=== PATIENT | male | born 1950 | race Caucasian/White ===

== ENCOUNTER 2020-11-15 13:48 | Inpatient (IN) | payer OTHER, MEDICARE, BC ==
--- NOTE | 2020-11-15 14:00 | EDM.PDOC ---
ED HPI GENERAL MEDICAL PROBLEM - General Chief Complaint: Cardiovascular Problem Stated Complaint: shortness of breathe Time Seen by Provider: 11/15/20 13:51 Chest Pain Score (Numeric/FACES): 2 - Related Data Allergies Allergy/AdvReac Type Severity Reaction Status Date / Time No Known Allergies Allergy Verified 11/15/20 13:59 Course - Vital Signs Last Recorded V/S: Last Vital Signs Temp 35.7 C L 11/15/20 13:57 Pulse 91 11/15/20 13:57 Resp 18 11/15/20 13:57 BP 116/73 11/15/20 13:57 Pulse Ox 97 11/15/20 13:57 Departure - Departure Sepsis Event Note (ED) - Evaluation Sepsis Screening Result: No Definite Risk - Focused Exam Vital Signs: Vital Signs Temp Pulse Resp BP Pulse Ox 11/15/20 13:57 35.7 C L 91 18 116/73 97
--- NOTE | 2020-11-15 14:01 | PCM.SN.2 ---
- Free Text/Narrative Note: EKG done at 1349. Sinus rhythm heart rate 86. [place] 152. QT 431. [place] -13. QRS ST and T are unremarkable. Compared to 06/23/2018 no change. Impression no acute injury
[2020-11-15] MEDS ORDERED: Sodium Chloride 0.9% 10 ML Syringe FLUSH PRN (14:03)
[2020-11-15] MEDS ORDERED: Sodium Chloride 0.9% 2.5 ML Syringe FLUSH PRN (14:03)
[2020-11-15] MEDS ORDERED: Aspirin 81 MG Tab.Chew PO ONE (14:06)
--- NOTE | 2020-11-15 14:16 | EDM.PDOC ---
ED HPI GENERAL MEDICAL PROBLEM - General Chief Complaint: Cardiovascular Problem Stated Complaint: shortness of breathe Time Seen by Provider: 11/15/20 13:51 Source of Information: Reports: Patient History Limitations: Reports: No Limitations - History of Present Illness INITIAL COMMENTS - FREE TEXT/NARRATIVE: HISTORY AND PHYSICAL: History of present illness: This is a 70-year-old male who presents with chest pain and shortness of breath with exertion over the past 3 to 4 days. He was referred by the [facility] due to recent hospitalization of renal insufficiency [place] [facility]. He is currently on an antibiotic for a UTI. Patient states he continues to have some right lower back pain, this is unchanged since his previous hospital admission. The shortness of breath is worse with physical activity, better at rest. Chest pain is nonreproducible. He describes it as a pressure to his mid sternum. He otherwise says he has no history of cardiac disease. Does have a history of COPD and hypertension. Patient denies any fever, chills, headache, change in vision, syncope or near syncope. Denies any back pain, or cough. Denies any abdominal pain, nausea, vomiting, diarrhea, constipation or dysuria. Has not noted any blood in urine or stool. Patient has been eating and drinking appropriately. Review of systems: As per history of present illness and below otherwise all systems reviewed and negative. Past medical history: As per history of present illness and as reviewed below otherwise noncontributory. Surgical history: As per history of present illness and as reviewed below otherwise noncontributory. Social history: See social history for further information Family history: As per history of present illness and as reviewed below otherwise noncontribut ory. Physical exam: General: Well developed and well nourished 70 year male. Alert and orientated x 3. Nontoxic in appearance and in no acute distress. Vital signs are stable and have been reviewed by me. Nursing notes were reviewed. HEENT: Atraumatic, normocephalic, pupils equal and reactive bilaterally, negative for conjunctival pallor or scleral icterus, mucous membranes moist, neck supple, nontender, trachea midline. No drooling or trismus noted. No meningeal signs. No hot potato voice noted. Lungs: Slightly diminished to auscultation bilaterally. No wheezes, rales, or rhonchi. Chest nontender. Normal work of breathing, no accessory muscles used. Heart: S1S2, regular rate and rhythm without overt murmur, gallops, or rubs. No JVD. No peripheral edema Abdomen: Soft, nondistended, nontender. Normoactive bowel sounds. Negative for masses or costovertebral tenderness. Skin: Intact, warm, dry. No lesions or rashes noted. Hematologic: No petechiae or purpra. Mucosa appropriate color and normal nail bed color and refill. Extremities: Atraumatic, moves all extremities per self without difficulty or deficits, negative for cords or calf pain. Neurovascular unremarkable. Neuro: Awake, alert, oriented. Cranial nerves II through XII unremarkable. Cerebellum unremarkable. Motor and sensory unremarkable throughout. Exam nonfocal. Psychiatric: Mood and affect are appropriate. Normal thought process. Answering questions appropriately. Notes: *This patient was seen and evaluated during the 2019 SARS-CoV-2 novel coronavirus pandemic period. Community viral transmission is ongoing at time of this encounter and the emergency department is operating under pandemic response procedures. The patient presents today with shortness of breath and chest pain. His exam is essentially normal. He has had a recent history of renal insufficiency. He is agreeable to lab work. EKG shows sinus rhythm with a rate of 86 which is unchanged from 06/23/2018. Patient does have a leukocytosis. BUN and creatinine is 68, 4.4. No previous renal labs for comparison. Patient states he recently was admitted in [place] and received IV fluids and states that his BUN and creatinine had improved well enough for him to be discharged home. He does have a urinary tract infection in which he has been on Cipro over the past 7 days. I feel the patient needs to be admitted for further care and management. Dr Donnelly was consulted about this patient. He requested CT abd/pelvis. Resident will come and evaluate patient. CT shows mild bladder wall thickening, raising question of cystitis. Colonic diverticulosis but no evidence of diverticulitis. Post inguinal hernia repair bilaterally. No evidence of stone or obstruction. Patient will be admitted for observation with telemetry. Diagnostics: CBC, CMP, Troponin, CXR, EKG, COVID Therapeutics: ASA 324 mg PO Impression: Acute kidney injury UTI Chest pain, r/o [place] Plan: Admitted to Med/Surg Definitive disposition and diagnosis as appropriate pending reevaluation and review of above. Chest Pain Score (Numeric/FACES): 2 - Related Data Allergies Allergy/AdvReac Type Severity Reaction Status Date / Time No Known Allergies Allergy Verified 11/15/20 13:59 Home Meds: Home Meds Ciprofloxacin [Ciprofloxacin HCl] 11/15/20 [History] Past Medical History Cardiovascular History: Reports: High Cholesterol, Hypertension Genitourinary History: Reports: BPH - Infectious Disease History Infectious Disease History: Reports: Chicken Pox Social & Family History - Family History Family Medical History: No Pertinent Family History - Tobacco Use Tobacco Use Status *Q: Never Tobacco User - Recreational Drug Use Recreational Drug Use: No ED ROS GENERAL - Review of Systems Review Of Systems: Comprehensive ROS is negative, except as noted in HPI. ED EXAM, GENERAL - Physical Exam Exam: See Below (See dictation) Course - Vital Signs Last Recorded V/S: Last Vital Signs Temp 96.3 F L 11/15/20 13:57 Pulse 73 11/15/20 16:31 Resp 18 11/15/20 13:57 BP 120/65 11/15/20 16:31 Pulse Ox 97 11/15/20 16:31 - Orders/Labs/Meds Orders: Active Orders 24 hr Category Date Time Status Admission Status [Patient Status] [ADT] Stat ADT 11/15/20 16:37 Ordered Cardiac Monitoring [RC] . DIRECTED Care 11/15/20 14:03 Active EKG Documentation Completion [RC] STAT Care 11/15/20 14:03 Active Sodium Chloride 0.9% [Normal Saline] 1,000 ml Med 11/15/20 14:48 Active IV STAT Sodium Chloride 0.9% [Saline Flush] Med 11/15/20 14:03 Active 10 ml FLUSH ASDIRECTED PRN Sodium Chloride 0.9% [Saline Flush] Med 11/15/20 14:03 Active 2.5 ml FLUSH ASDIRECTED PRN Saline Lock Insert [OM.PC] Stat Oth 11/15/20 14:03 Ordered Labs: Laboratory Tests 11/15/20 11/15/20 11/15/20 Range/Units 14:05 14:05 14:20 WBC 14.25 H (4.0-11.0) K/uL RBC 4.31 L (4.50-5.90) M/uL Hgb 12.2 L (13.0-17.0) g/dL Hct 35.6 L (38.0-50.0) % MCV 82.6 (80.0-98.0) fL MCH 28.3 (27.0-32.0) pg MCHC 34.3 (31.0-37.0) g/dL RDW Std Deviation 38.2 (28.0-62.0) fl RDW Coeff of Mumtaz 13 (11.0-15.0) % Plt Count 332 (150-400) K/uL MPV 9.20 (7.40-12.00) fL Neut % (Auto) 73.6 (48.0-80.0) % Lymph % (Auto) 15.9 L (16.0-40.0) % [place] % (Auto) 8.0 (0.0-15.0) % Eos % (Auto) 2.3 (0.0-7.0) % Baso % (Auto) 0.2 (0.0-1.5) % Neut # (Auto) 10.5 H (1.4-5.7) K/uL Lymph # (Auto) 2.3 (0.6-2.4) K/uL [place] # (Auto) 1.1 H (0.0-0.8) K/uL Eos # (Auto) 0.3 (0.0-0.7) K/uL Baso # (Auto) 0.0 (0.0-0.1) K/uL Nucleated RBC % 0.0 /100WBC Nucleated RBCs # 0 K/uL Lactate (0.20-2.00) mmol/L Sodium 133 L (136-148) mmol/L Potassium 4.0 (3.5-5.1) mmol/L Chloride 100 (98-107) mmol/L Carbon Dioxide 17.4 L (21.0-32.0) mmol/L BUN 68 H (7.0-18.0) mg/dL Creatinine 4.4 H (0.8-1.3) mg/dL Est Cr Clr Drug Dosing 16.66 mL/min Estimated GFR (MDRD) 13.3 ml/min Glucose 104 (74-106) mg/dL Calcium 9.4 (8.5-10.1) mg/dL Total Bilirubin 0.7 (0.2-1.0) mg/dL AST 28 (15-37) IU/L ALT 65 H (14-63) IU/L Alkaline Phosphatase 158 H (46-116) U/L Troponin I < 0.050 (0.000-0.056) ng/mL Total Protein 8.7 H (6.4-8.2) g/dL Albumin 3.3 L (3.4-5.0) g/dL Globulin 5.4 H (2.6-4.0) g/dL Albumin/Globulin Ratio 0.6 L (0.9-1.6) Urine Color YELLOW Urine Appearance CLOUDY Urine pH 6.0 (5.0-8.0) Ur Specific [place] 1.010 (1.001-1.035) Urine Protein TRACE H (NEGATIVE) mg/dL Urine Glucose (UA) NEGATIVE (NEGATIVE) mg/dL Urine Ketones NEGATIVE (NEGATIVE) mg/dL Urine Occult Blood SMALL H (NEGATIVE) Urine Nitrite NEGATIVE (NEGATIVE) Urine Bilirubin NEGATIVE (NEGATIVE) Urine Urobilinogen 0.2 (<2.0) EU/dL Ur Leukocyte Esterase LARGE H (NEGATIVE) Urine RBC 1-3 (0-2/HPF) Urine WBC TO NUMEROUS TO COUNT H (0-5/HPF) Ur Epithelial Cells FEW (NONE-FEW) Urine Bacteria FEW (NEGATIVE) SARS-CoV-2 RNA (MIKO) (NEGATIVE) 11/15/20 11/15/20 Range/Units 14:45 15:03 WBC (4.0-11.0) K/uL RBC (4.50-5.90) M/uL Hgb (13.0-17.0) g/dL Hct (38.0-50.0) % MCV (80.0-98.0) fL MCH (27.0-32.0) pg MCHC (31.0-37.0) g/dL RDW Std Deviation (28.0-62.0) fl RDW Coeff of Mumtaz (11.0-15.0) % Plt Count (150-400) K/uL MPV (7.40-12.00) fL Neut % (Auto) (48.0-80.0) % Lymph % (Auto) (16.0-40.0) % [place] % (Auto) (0.0-15.0) % Eos % (Auto) (0.0-7.0) % Baso % (Auto) (0.0-1.5) % Neut # (Auto) (1.4-5.7) K/uL Lymph # (Auto) (0.6-2.4) K/uL [place] # (Auto) (0.0-0.8) K/uL Eos # (Auto) (0.0-0.7) K/uL Baso # (Auto) (0.0-0.1) K/uL Nucleated RBC % /100WBC Nucleated RBCs # K/uL Lactate 0.6 (0.20-2.00) mmol/L Sodium (136-148) mmol/L Potassium (3.5-5.1) mmol/L Chloride (98-107) mmol/L Carbon Dioxide (21.0-32.0) mmol/L BUN (7.0-18.0) mg/dL Creatinine (0.8-1.3) mg/dL Est Cr Clr Drug Dosing mL/min Estimated GFR (MDRD) ml/min Glucose (74-106) mg/dL Calcium (8.5-10.1) mg/dL Total Bilirubin (0.2-1.0) mg/dL AST (15-37) IU/L ALT (14-63) IU/L Alkaline Phosphatase (46-116) U/L Troponin I (0.000-0.056) ng/mL Total Protein (6.4-8.2) g/dL Albumin (3.4-5.0) g/dL Globulin (2.6-4.0) g/dL Albumin/Globulin Ratio (0.9-1.6) Urine Color Urine Appearance Urine pH (5.0-8.0) Ur Specific [place] (1.001-1.035) Urine Protein (NEGATIVE) mg/dL Urine Glucose (UA) (NEGATIVE) mg/dL Urine Ketones (NEGATIVE) mg/dL Urine Occult Blood (NEGATIVE) Urine Nitrite (NEGATIVE) Urine Bilirubin (NEGATIVE) Urine Urobilinogen (<2.0) EU/dL Ur Leukocyte Esterase (NEGATIVE) Urine RBC (0-2/HPF) Urine WBC (0-5/HPF) Ur Epithelial Cells (NONE-FEW) Urine Bacteria (NEGATIVE) SARS-CoV-2 RNA (MIKO) NEGATIVE (NEGATIVE) Departure - Departure Time of Disposition: 16:39 Disposition: Refer to Observation Clinical Impression: Chest pain, rule out acute myocardial infarction, Acute kidney injury, Urinary tract infection Referrals: Alonso Aiken, [employer] [Primary Care Provider] - Forms: ED Department Discharge Sepsis Event Note (ED) - Evaluation Sepsis Screening Result: No Definite Risk - Focused Exam Vital Signs: Vital Signs Temp Pulse Resp BP Pulse Ox 11/15/20 16:31 73 120/65 97 11/15/20 13:57 96.3 F L 91 18 116/73 97 - My Orders Last 24 Hours: My Active Orders 11/15/20 14:03 Cardiac Monitoring [RC] . DIRECTED EKG Documentation Completion [RC] STAT Sodium Chloride 0.9% [Saline Flush] 10 ml FLUSH ASDIRECTED PRN Sodium Chloride 0.9% [Saline Flush] 2.5 ml FLUSH ASDIRECTED PRN Saline Lock Insert [OM.PC] Stat 11/15/20 14:48 Sodium Chloride 0.9% [Normal Saline] 1,000 ml IV STAT 11/15/20 16:37 Admission Status [Patient Status] [ADT] Stat - Assessment/Plan Last 24 Hours: My Active Orders 11/15/20 14:03 Cardiac Monitoring [RC] . DIRECTED EKG Documentation Completion [RC] STAT Sodium Chloride 0.9% [Saline Flush] 10 ml FLUSH ASDIRECTED PRN Sodium Chloride 0.9% [Saline Flush] 2.5 ml FLUSH ASDIRECTED PRN Saline Lock Insert [OM.PC] Stat 11/15/20 14:48 Sodium Chloride 0.9% [Normal Saline] 1,000 ml IV STAT 11/15/20 16:37 Admission Status [Patient Status] [ADT] Stat
[2020-11-15] MEDS ORDERED: Sodium Chloride 0.9% 1,000 ML IV ONE (14:48)
[2020-11-15] MEDS ORDERED: cefTRIAXone 1 GM in Premix Bag 1 BAG IV ONE (14:48)
[2020-11-15 14:49] LABS: BLOOD UREA NITROGEN,BUN 68 mg/dL (7.0-18.0); CARBON DIOXIDE,CO2 17.4 mmol/L (21.0-32.0); CHLORIDE,CL 100 mmol/L (98-107); GLUCOSE RANDOM 104 mg/dL (74-106); SODIUM,NA 133 mmol/L (136-148)
--- NOTE | 2020-11-15 15:02 | CR ---
INDICATION: Chest pain and shortness of breath TECHNIQUE: Chest 1 view COMPARISON: None FINDINGS: Cardiovascular and mediastinum: Heart size and vasculature are normal in caliber and appearance. Lungs and pleural spaces: Lungs are clear. No sign of infiltrate or mass. No sign of pleural effusion. No pneumothorax. Bones and soft tissues: No significant findings. IMPRESSION: Negative chest. Dictated by Fernando Gilmore MD @ Nov 15 2020 3:00PM Signed by Dr. Fernando Gilmore @ Nov 15 2020 3:01PM
--- NOTE | 2020-11-15 16:17 | CT ---
INDICATION: Abdominal pain. TECHNIQUE: Volumetric helical scanning of the abdomen and pelvis was performed without contrast material. Coronal and sagittal reconstructions were obtained. COMPARISON: None FINDINGS: Colonic diverticulosis is demonstrated. There is no evidence of diverticulitis. The bowel is otherwise unremarkable. No free fluid is demonstrated. The bladder wall is mildly thickened. The kidneys are normal in size, shape and attenuation. No ureteral stone or obstruction is evident. The prostate is unremarkable. The liver, spleen, adrenal glands and pancreas are within normal limits. No lymphadenopathy is evident. Postop changes of bilateral inguinal hernia repair is noted. The lung bases are essentially clear. The heart size is normal. Calcified coronary arterial plaque is demonstrated. IMPRESSION: 1. Mild bladder wall thickening, raising question of cystitis. 2. Colonic diverticulosis but no evidence of diverticulitis. 3. Post inguinal hernia repair bilaterally. Please note that all CT scans at this facility use dose modulation, iterative reconstruction, and/or weight-based dosing when appropriate to reduce radiation dose to as low as reasonably achievable. Dictated by Edmund Wasserman MD @ Nov 15 2020 4:07PM Signed by Dr. Edmund Wasserman @ Nov 15 2020 4:16PM
--- NOTE | 2020-11-15 17:17 | PCM.HP.2 ---
H&P History of Present Illness - General Date of Service: 11/15/20 Admit Problem/Dx: Admission Diagnosis/Problem Admission Diagnosis/Problem Acute kidney injury - History of Present Illness Initial Comments - Free Text/Narative: 70-year-old male admitted for cystitis, STEVE, ACS rule out. Patient presented to the emergency department [facility] due to abdominal discomfort, back pain , chest pain, unresolved UTI. Patient states he was previously seen in [facility] this past for similar symptoms, was diagnosed with a urinary tract infection and acute kidney injury, states he was treated with antibiotics and IV fluids, discharged home on ciprofloxacin. Patient states at discharge from [place] all of his lab work including kidney functions were normal (will request patient's previous records to confirm). Patient also believes that his poor kidney function could be related to his previous hypertension medication, losartan, which was discontinued prior to admission. Patient states since discharge symptoms have not improved. On admission patient states right lower back pain with right flank pain. Denies shortness of breath or chest pain. Denies headache, dizziness, nausea, vomiting, constipation, dysuria, hematuria. Patient states past medical history of hypertension, with no other cardiac disease. Patient also states history of COPD, hypertension, GERD, indigestion. Patient is not currently a smoker. Patient denies history of diabetes. Laboratory work includes first troponin negative will repeat second troponin, EKG-normal sinus rhythm with regular rate 86, white blood cell count of 14.2, sodium 133, potassium 4.0, BUN 68, creatinine 4.4, UA positive for white blood cell and positive leukocyte esterase, negative nitrite. Negative chest x-ray, CT abdomen pelvis impression of bladder wall thickening possible cystitis and signs of diverticulosis without diverticulitis. Patient will be started on Rocephin 1 g daily and IV fluids. Chest Pain Score (Numeric/FACES): 2 - Related Data Allergies/Adverse Reactions: Allergies Allergy/AdvReac Type Severity Reaction Status Date / Time No Known Allergies Allergy Verified 11/15/20 17:54 Home Medications: Home Meds Allopurinol [Zyloprim] 300 mg PO DAILY 11/15/20 [History] Ciprofloxacin [Ciprofloxacin HCl] 11/15/20 [History] Diclofenac Sodium [Voltaren 1% Gel] 1 applic TOP QID PRN 11/15/20 [History] Metoprolol Tartrate 25 mg PO DAILY 11/15/20 [History] Mometasone Furoate 200mcg [Asmanex HFA 200mcg] 2 puff INH DAILY 11/15/20 [History] Tamsulosin HCl [Flomax] 1 cap PO BEDTIME 11/15/20 [History] Tiotropium [Spiriva HandiHaler] 2 puff INH DAILY 11/15/20 [History] atorvaSTATin Calcium [Atorvastatin Calcium] 20 mg PO BEDTIME 11/15/20 [History] Past Medical History Cardiovascular History: Reports: High Cholesterol, Hypertension Genitourinary History: Reports: BPH - Infectious Disease History Infectious Disease History: Reports: Chicken Pox Social & Family History - Family History Family Medical History: No Pertinent Family History - Tobacco Use Tobacco Use Status *Q: Never Tobacco User - Recreational Drug Use Recreational Drug Use: No H&P Review of Systems - Review of Systems: Review Of Systems: See Below General: Denies: Fever, Chills Pulmonary: Denies: Shortness of Breath Cardiovascular: Denies: Chest Pain Gastrointestinal: Denies: Abdominal Pain, Nausea, Vomiting Genitourinary: Denies: Dysuria, Burning Psychiatric: Denies: Confusion Neurological: Denies: Confusion, Dizziness Exam - Exam Exam: See Below - Vital Signs Vital Signs: Last Vital Signs Temp 96.3 F L 11/15/20 13:57 Pulse 73 11/15/20 16:31 Resp 18 11/15/20 13:57 BP 120/65 11/15/20 16:31 Pulse Ox 97 11/15/20 16:31 Weight: 205 lb - Exam Quality Assessment: No: Supplemental Oxygen General: Alert, Oriented Lungs: Clear to Auscultation, Normal Respiratory Effort Cardiovascular: Regular Rate, Regular Rhythm GI/Abdominal Exam: Normal Bowel Sounds, Soft, Non-Tender Extremities: No Pedal Edema Neuro Extensive - Mental Status: Alert, Oriented x3 - Patient Data Lab Results Last 24 hrs: Laboratory Results - last 24 hr 11/15/20 11/15/20 11/15/20 Range/Units 14:05 14:05 14:20 WBC 14.25 H (4.0-11.0) K/uL RBC 4.31 L (4.50-5.90) M/uL Hgb 12.2 L (13.0-17.0) g/dL Hct 35.6 L (38.0-50.0) % MCV 82.6 (80.0-98.0) fL MCH 28.3 (27.0-32.0) pg MCHC 34.3 (31.0-37.0) g/dL RDW Std Deviation 38.2 (28.0-62.0) fl RDW Coeff of Mumtaz 13 (11.0-15.0) % Plt Count 332 (150-400) K/uL MPV 9.20 (7.40-12.00) fL Neut % (Auto) 73.6 (48.0-80.0) % Lymph % (Auto) 15.9 L (16.0-40.0) % Izard % (Auto) 8.0 (0.0-15.0) % Eos % (Auto) 2.3 (0.0-7.0) % Baso % (Auto) 0.2 (0.0-1.5) % Neut # (Auto) 10.5 H (1.4-5.7) K/uL Lymph # (Auto) 2.3 (0.6-2.4) K/uL Izard # (Auto) 1.1 H (0.0-0.8) K/uL Eos # (Auto) 0.3 (0.0-0.7) K/uL Baso # (Auto) 0.0 (0.0-0.1) K/uL Nucleated RBC % 0.0 /100WBC Nucleated RBCs # 0 K/uL Lactate (0.20-2.00) mmol/L Sodium 133 L (136-148) mmol/L Potassium 4.0 (3.5-5.1) mmol/L Chloride 100 (98-107) mmol/L Carbon Dioxide 17.4 L (21.0-32.0) mmol/L BUN 68 H (7.0-18.0) mg/dL Creatinine 4.4 H (0.8-1.3) mg/dL Est Cr Clr Drug Dosing 16.66 mL/min Estimated GFR (MDRD) 13.3 ml/min Glucose 104 (74-106) mg/dL Calcium 9.4 (8.5-10.1) mg/dL Total Bilirubin 0.7 (0.2-1.0) mg/dL AST 28 (15-37) IU/L ALT 65 H (14-63) IU/L Alkaline Phosphatase 158 H (46-116) U/L Troponin I < 0.050 (0.000-0.056) ng/mL Total Protein 8.7 H (6.4-8.2) g/dL Albumin 3.3 L (3.4-5.0) g/dL Globulin 5.4 H (2.6-4.0) g/dL Albumin/Globulin Ratio 0.6 L (0.9-1.6) Urine Color YELLOW Urine Appearance CLOUDY Urine pH 6.0 (5.0-8.0) Ur Specific Struthers 1.010 (1.001-1.035) Urine Protein TRACE H (NEGATIVE) mg/dL Urine Glucose (UA) NEGATIVE (NEGATIVE) mg/dL Urine Ketones NEGATIVE (NEGATIVE) mg/dL Urine Occult Blood SMALL H (NEGATIVE) Urine Nitrite NEGATIVE (NEGATIVE) Urine Bilirubin NEGATIVE (NEGATIVE) Urine Urobilinogen 0.2 (<2.0) EU/dL Ur Leukocyte Esterase LARGE H (NEGATIVE) Urine RBC 1-3 (0-2/HPF) Urine WBC TO NUMEROUS TO COUNT H (0-5/HPF) Ur Epithelial Cells FEW (NONE-FEW) Urine Bacteria FEW (NEGATIVE) SARS-CoV-2 RNA (MIKO) (NEGATIVE) 11/15/20 11/15/20 Range/Units 14:45 15:03 WBC (4.0-11.0) K/uL RBC (4.50-5.90) M/uL Hgb (13.0-17.0) g/dL Hct (38.0-50.0) % MCV (80.0-98.0) fL MCH (27.0-32.0) pg MCHC (31.0-37.0) g/dL RDW Std Deviation (28.0-62.0) fl RDW Coeff of Mumtaz (11.0-15.0) % Plt Count (150-400) K/uL MPV (7.40-12.00) fL Neut % (Auto) (48.0-80.0) % Lymph % (Auto) (16.0-40.0) % Izard % (Auto) (0.0-15.0) % Eos % (Auto) (0.0-7.0) % Baso % (Auto) (0.0-1.5) % Neut # (Auto) (1.4-5.7) K/uL Lymph # (Auto) (0.6-2.4) K/uL Izard # (Auto) (0.0-0.8) K/uL Eos # (Auto) (0.0-0.7) K/uL Baso # (Auto) (0.0-0.1) K/uL Nucleated RBC % /100WBC Nucleated RBCs # K/uL Lactate 0.6 (0.20-2.00) mmol/L Sodium (136-148) mmol/L Potassium (3.5-5.1) mmol/L Chloride (98-107) mmol/L Carbon Dioxide (21.0-32.0) mmol/L BUN (7.0-18.0) mg/dL Creatinine (0.8-1.3) mg/dL Est Cr Clr Drug Dosing mL/min Estimated GFR (MDRD) ml/min Glucose (74-106) mg/dL Calcium (8.5-10.1) mg/dL Total Bilirubin (0.2-1.0) mg/dL AST (15-37) IU/L ALT (14-63) IU/L Alkaline Phosphatase (46-116) U/L Troponin I (0.000-0.056) ng/mL Total Protein (6.4-8.2) g/dL Albumin (3.4-5.0) g/dL Globulin (2.6-4.0) g/dL Albumin/Globulin Ratio (0.9-1.6) Urine Color Urine Appearance Urine pH (5.0-8.0) Ur Specific Struthers (1.001-1.035) Urine Protein (NEGATIVE) mg/dL Urine Glucose (UA) (NEGATIVE) mg/dL Urine Ketones (NEGATIVE) mg/dL Urine Occult Blood (NEGATIVE) Urine Nitrite (NEGATIVE) Urine Bilirubin (NEGATIVE) Urine Urobilinogen (<2.0) EU/dL Ur Leukocyte Esterase (NEGATIVE) Urine RBC (0-2/HPF) Urine WBC (0-5/HPF) Ur Epithelial Cells (NONE-FEW) Urine Bacteria (NEGATIVE) SARS-CoV-2 RNA (MIKO) NEGATIVE (NEGATIVE) Result Diagrams: 11/15/20 14:05 11/15/20 14:05 Sepsis Event Note - Evaluation Sepsis Screening Result: No Definite Risk - Focused Exam Vital Signs: Vital Signs Temp Pulse Resp BP Pulse Ox 11/15/20 16:31 73 120/65 97 11/15/20 13:57 96.3 F L 91 18 116/73 97 - Problem List (1) Cystitis SNOMED Code(s): 33983821 ICD Code: N30.90 - CYSTITIS, UNSPECIFIED WITHOUT HEMATURIA Status: Acute Current Visit: Yes (2) Hypertension SNOMED Code(s): 79740166 ICD Code: I10 - ESSENTIAL (PRIMARY) HYPERTENSION Status: Acute Current Visit: Yes (3) COPD (chronic obstructive pulmonary disease) SNOMED Code(s): 29159495 ICD Code: J44.9 - CHRONIC OBSTRUCTIVE PULMONARY DISEASE, UNSPECIFIED Status: Acute Current Visit: No (4) Acute kidney injury SNOMED Code(s): 20680452, 56145716 ICD Code: N17.9 - ACUTE KIDNEY FAILURE, UNSPECIFIED Status: Acute Current Visit: Yes (5) Chest pain, rule out acute myocardial infarction SNOMED Code(s): 29426953 ICD Code: R07.9 - CHEST PAIN, UNSPECIFIED Status: Acute Current Visit: Yes Problem List Initiated/Reviewed/Updated: Yes Orders Last 24hrs: Active Orders 24 hr Category Date Time Status Admission Status [Patient Status] [ADT] Routine ADT 11/15/20 16:58 Active Cardiac Monitoring [RC] . DIRECTED Care 11/15/20 14:03 Active EKG Documentation Completion [RC] STAT Care 11/15/20 14:03 Active Brewer Catheter Insertion [Insert Urinary Catheter] [OM. Care 11/15/20 17:15 Ordered PC] Q24H Intake and Output Strict [RC] ASDIRECTED Care 11/15/20 17:07 Ordered Urinary Catheter Assessment [RC] ASDIRECTED Care 11/15/20 17:10 Ordered CREATININE,URINE RAND [URCHEM] Stat Lab 11/15/20 17:04 Ordered SODIUM,URINE RANDOM [URCHEM] Stat Lab 11/15/20 17:04 Ordered TROPONIN I [CHEM] Urgent Lab 11/15/20 17:30 Ordered Sodium Chloride 0.9% @ 150 MLS/HR (1,000ml) Med 11/15/20 17:15 Ordered Sodium Chloride 0.9% [Normal Saline] 1,000 ml IV ASDIRECTED Sodium Chloride 0.9% [Normal Saline] 1,000 ml Med 11/15/20 14:48 Active IV STAT Sodium Chloride 0.9% [Saline Flush] Med 11/15/20 14:03 Active 10 ml FLUSH ASDIRECTED PRN Sodium Chloride 0.9% [Saline Flush] Med 11/15/20 14:03 Active 2.5 ml FLUSH ASDIRECTED PRN cefTRIAXone [Rocephin] 1 gm Med 11/16/20 14:00 Ordered Sodium Chloride 0.9% [Normal Saline] 50 ml IV Q24H Saline Lock Insert [OM.PC] Stat Oth 11/15/20 14:03 Ordered Assessment/Plan Comment:: ACS rule outfirst troponin negative will trend with second troponin. EKGnormal sinus rhythm with regular rate 86 with no signs of acute injury. CystitisRocephin 1 g daily AKIcreatinine 4.4, patient already received 1L bolus of normal saline in the ED, will continue fluids at a rate of 150 mL/h normal saline. Urine sodium and urine creatinine ordered we will calculate patient's fractional excretion of sodium to determine renal failure pathology. Avoid all nephrotoxic agents, Strict I&O. Patient's urine sodium 40, urine creatinine 65 FeNA score of 2.0%, possible causative STEVE could be intrinsic renal pathology GERD-protonix 40mg PO daily Heart healthy diet, heparin 5000 units SC Q8H for DVT prophylaxis, monitoring manager, vitals Q4H.
[2020-11-15] MEDS ORDERED: Acetaminophen 325 MG Tab PO PRN (17:48)
[2020-11-15] MEDS: Heparin Sodium 5,000 Units/ML Vial SUBCUT SCH (18:11)
[2020-11-15] MEDS ORDERED: Tamsulosin 0.4 MG Cap.ER PO SCH (21:00)
[2020-11-15] MEDS ORDERED: Albuterol/Ipratropium 3.0-0.5 MG/3 ML Neb Soln NEB PRN (23:41)
[2020-11-15] MEDS: Tamsulosin 0.4 MG Cap.ER PO SCH (23:48)
[2020-11-16] MEDS: Sodium Chloride 0.9% 1,000 ML IV SCH ×4 (01:05→21:35)
[2020-11-16] MEDS: Heparin Sodium 5,000 Units/ML Vial SUBCUT SCH ×3 (01:25→17:57)
[2020-11-16 06:30] LABS: CARBON DIOXIDE,CO2 17.2 mmol/L (21.0-32.0); POTASSIUM,K 4.4 mmol/L (3.5-5.1)
[2020-11-16] MEDS: Pantoprazole 40 MG Tab.CR PO SCH (07:42)
[2020-11-16] MEDS: Metoprolol Tartrate 25 MG Tab PO SCH (09:04)
[2020-11-16] MEDS: Tiotropium Inhaler 18 MCG Inhalation Powder Cap Kit of 5 INH SCH (09:49)
[2020-11-16] MEDS: MOMETASONE FUROATE 200 MCG INH SCH (09:51)
--- NOTE | 2020-11-16 10:19 | PCM.PN ---
- General Info Date of Service: 11/16/20 Subjective Update: Patient did not have any concerns overnight. Patient denies chest pain, shortness of breath, fever, chills, nausea, vomiting, abdominal pain, back pain, flank pain. Patient denies dysuria or hematuria or urinary retention. - Review of Systems General: Denies: Fever, Chills Pulmonary: Denies: Shortness of Breath Cardiovascular: Denies: Chest Pain Gastrointestinal: Denies: Abdominal Pain, Nausea, Vomiting Genitourinary: Denies: Dysuria, Frequency, Burning, Pain, Flank Pain Neurological: Denies: Confusion Psychiatric: Denies: Confusion - Patient Data Vitals - Most Recent: Last Vital Signs Temp 97.5 F 11/16/20 09:55 Pulse 78 11/16/20 09:55 Resp 16 11/16/20 09:55 BP 112/78 11/16/20 09:55 Pulse Ox 95 11/16/20 09:55 Weight - Most Recent: 210 lb 1.6 oz I&O - Last 24 Hours: Intake & Output 11/15/20 11/16/20 11/16/20 22:59 06:59 14:59 Intake Total 3273 Output Total 3100 Balance 173 Lab Results Last 24 Hours: Laboratory Results - last 24 hr 11/15/20 11/15/20 11/15/20 Range/Units 14:05 14:05 14:20 WBC 14.25 H (4.0-11.0) K/uL RBC 4.31 L (4.50-5.90) M/uL Hgb 12.2 L (13.0-17.0) g/dL Hct 35.6 L (38.0-50.0) % MCV 82.6 (80.0-98.0) fL MCH 28.3 (27.0-32.0) pg MCHC 34.3 (31.0-37.0) g/dL RDW Std Deviation 38.2 (28.0-62.0) fl RDW Coeff of Mumtaz 13 (11.0-15.0) % Plt Count 332 (150-400) K/uL MPV 9.20 (7.40-12.00) fL Neut % (Auto) 73.6 (48.0-80.0) % Lymph % (Auto) 15.9 L (16.0-40.0) % Louisa % (Auto) 8.0 (0.0-15.0) % Eos % (Auto) 2.3 (0.0-7.0) % Baso % (Auto) 0.2 (0.0-1.5) % Neut # (Auto) 10.5 H (1.4-5.7) K/uL Lymph # (Auto) 2.3 (0.6-2.4) K/uL Louisa # (Auto) 1.1 H (0.0-0.8) K/uL Eos # (Auto) 0.3 (0.0-0.7) K/uL Baso # (Auto) 0.0 (0.0-0.1) K/uL Nucleated RBC % 0.0 /100WBC Nucleated RBCs # 0 K/uL Lactate (0.20-2.00) mmol/L Sodium 133 L (136-148) mmol/L Potassium 4.0 (3.5-5.1) mmol/L Chloride 100 (98-107) mmol/L Carbon Dioxide 17.4 L (21.0-32.0) mmol/L BUN 68 H (7.0-18.0) mg/dL Creatinine 4.4 H (0.8-1.3) mg/dL Est Cr Clr Drug Dosing 16.66 mL/min Estimated GFR (MDRD) 13.3 ml/min Glucose 104 (74-106) mg/dL Calcium 9.4 (8.5-10.1) mg/dL Magnesium (1.8-2.4) mg/dL Total Bilirubin 0.7 (0.2-1.0) mg/dL AST 28 (15-37) IU/L ALT 65 H (14-63) IU/L Alkaline Phosphatase 158 H (46-116) U/L Creatine Kinase (26-308) U/L Troponin I < 0.050 (0.000-0.056) ng/mL Total Protein 8.7 H (6.4-8.2) g/dL Albumin 3.3 L (3.4-5.0) g/dL Globulin 5.4 H (2.6-4.0) g/dL Albumin/Globulin Ratio 0.6 L (0.9-1.6) Urine Color YELLOW Urine Appearance CLOUDY Urine pH 6.0 (5.0-8.0) Ur Specific Rheems 1.010 (1.001-1.035) Urine Protein TRACE H (NEGATIVE) mg/dL Urine Glucose (UA) NEGATIVE (NEGATIVE) mg/dL Urine Ketones NEGATIVE (NEGATIVE) mg/dL Urine Occult Blood SMALL H (NEGATIVE) Urine Nitrite NEGATIVE (NEGATIVE) Urine Bilirubin NEGATIVE (NEGATIVE) Urine Urobilinogen 0.2 (<2.0) EU/dL Ur Leukocyte Esterase LARGE H (NEGATIVE) Urine RBC 1-3 (0-2/HPF) Urine WBC TO NUMEROUS TO COUNT H (0-5/HPF) Ur Epithelial Cells FEW (NONE-FEW) Urine Bacteria FEW (NEGATIVE) Ur Random Creatinine mg/dL Ur Random Sodium (40.0-220.0) mmol/L SARS-CoV-2 RNA (MIKO) (NEGATIVE) 11/15/20 11/15/20 11/15/20 Range/Units 14:20 14:45 15:03 WBC (4.0-11.0) K/uL RBC (4.50-5.90) M/uL Hgb (13.0-17.0) g/dL Hct (38.0-50.0) % MCV (80.0-98.0) fL MCH (27.0-32.0) pg MCHC (31.0-37.0) g/dL RDW Std Deviation (28.0-62.0) fl RDW Coeff of Mumtaz (11.0-15.0) % Plt Count (150-400) K/uL MPV (7.40-12.00) fL Neut % (Auto) (48.0-80.0) % Lymph % (Auto) (16.0-40.0) % Louisa % (Auto) (0.0-15.0) % Eos % (Auto) (0.0-7.0) % Baso % (Auto) (0.0-1.5) % Neut # (Auto) (1.4-5.7) K/uL Lymph # (Auto) (0.6-2.4) K/uL Louisa # (Auto) (0.0-0.8) K/uL Eos # (Auto) (0.0-0.7) K/uL Baso # (Auto) (0.0-0.1) K/uL Nucleated RBC % /100WBC Nucleated RBCs # K/uL Lactate 0.6 (0.20-2.00) mmol/L Sodium (136-148) mmol/L Potassium (3.5-5.1) mmol/L Chloride (98-107) mmol/L Carbon Dioxide (21.0-32.0) mmol/L BUN (7.0-18.0) mg/dL Creatinine (0.8-1.3) mg/dL Est Cr Clr Drug Dosing mL/min Estimated GFR (MDRD) ml/min Glucose (74-106) mg/dL Calcium (8.5-10.1) mg/dL Magnesium (1.8-2.4) mg/dL Total Bilirubin (0.2-1.0) mg/dL AST (15-37) IU/L ALT (14-63) IU/L Alkaline Phosphatase (46-116) U/L Creatine Kinase (26-308) U/L Troponin I (0.000-0.056) ng/mL Total Protein (6.4-8.2) g/dL Albumin (3.4-5.0) g/dL Globulin (2.6-4.0) g/dL Albumin/Globulin Ratio (0.9-1.6) Urine Color Urine Appearance Urine pH (5.0-8.0) Ur Specific Rheems (1.001-1.035) Urine Protein (NEGATIVE) mg/dL Urine Glucose (UA) (NEGATIVE) mg/dL Urine Ketones (NEGATIVE) mg/dL Urine Occult Blood (NEGATIVE) Urine Nitrite (NEGATIVE) Urine Bilirubin (NEGATIVE) Urine Urobilinogen (<2.0) EU/dL Ur Leukocyte Esterase (NEGATIVE) Urine RBC (0-2/HPF) Urine WBC (0-5/HPF) Ur Epithelial Cells (NONE-FEW) Urine Bacteria (NEGATIVE) Ur Random Creatinine 65.2 mg/dL Ur Random Sodium 40.0 (40.0-220.0) mmol/L SARS-CoV-2 RNA (MIKO) NEGATIVE (NEGATIVE) 11/15/20 11/15/20 11/16/20 Range/Units 17:30 23:43 05:28 WBC 9.73 (4.0-11.0) K/uL RBC 3.67 L (4.50-5.90) M/uL Hgb 10.3 L (13.0-17.0) g/dL Hct 30.7 L (38.0-50.0) % MCV 83.7 (80.0-98.0) fL MCH 28.1 (27.0-32.0) pg MCHC 33.6 (31.0-37.0) g/dL RDW Std Deviation 39.2 (28.0-62.0) fl RDW Coeff of Mumtaz 13 (11.0-15.0) % Plt Count 333 (150-400) K/uL MPV 9.30 (7.40-12.00) fL Neut % (Auto) 68.4 (48.0-80.0) % Lymph % (Auto) 19.8 (16.0-40.0) % Louisa % (Auto) 8.1 (0.0-15.0) % Eos % (Auto) 3.5 (0.0-7.0) % Baso % (Auto) 0.2 (0.0-1.5) % Neut # (Auto) 6.7 H (1.4-5.7) K/uL Lymph # (Auto) 1.9 (0.6-2.4) K/uL Louisa # (Auto) 0.8 (0.0-0.8) K/uL Eos # (Auto) 0.3 (0.0-0.7) K/uL Baso # (Auto) 0.0 (0.0-0.1) K/uL Nucleated RBC % 0.0 /100WBC Nucleated RBCs # 0 K/uL Lactate (0.20-2.00) mmol/L Sodium (136-148) mmol/L Potassium (3.5-5.1) mmol/L Chloride (98-107) mmol/L Carbon Dioxide (21.0-32.0) mmol/L BUN (7.0-18.0) mg/dL Creatinine (0.8-1.3) mg/dL Est Cr Clr Drug Dosing mL/min Estimated GFR (MDRD) ml/min Glucose (74-106) mg/dL Calcium (8.5-10.1) mg/dL Magnesium (1.8-2.4) mg/dL Total Bilirubin (0.2-1.0) mg/dL AST (15-37) IU/L ALT (14-63) IU/L Alkaline Phosphatase (46-116) U/L Creatine Kinase (26-308) U/L Troponin I < 0.050 < 0.050 (0.000-0.056) ng/mL Total Protein (6.4-8.2) g/dL Albumin (3.4-5.0) g/dL Globulin (2.6-4.0) g/dL Albumin/Globulin Ratio (0.9-1.6) Urine Color Urine Appearance Urine pH (5.0-8.0) Ur Specific Rheems (1.001-1.035) Urine Protein (NEGATIVE) mg/dL Urine Glucose (UA) (NEGATIVE) mg/dL Urine Ketones (NEGATIVE) mg/dL Urine Occult Blood (NEGATIVE) Urine Nitrite (NEGATIVE) Urine Bilirubin (NEGATIVE) Urine Urobilinogen (<2.0) EU/dL Ur Leukocyte Esterase (NEGATIVE) Urine RBC (0-2/HPF) Urine WBC (0-5/HPF) Ur Epithelial Cells (NONE-FEW) Urine Bacteria (NEGATIVE) Ur Random Creatinine mg/dL Ur Random Sodium (40.0-220.0) mmol/L SARS-CoV-2 RNA (MIKO) (NEGATIVE) 11/16/20 11/16/20 Range/Units 05:28 05:28 WBC (4.0-11.0) K/uL RBC (4.50-5.90) M/uL Hgb (13.0-17.0) g/dL Hct (38.0-50.0) % MCV (80.0-98.0) fL MCH (27.0-32.0) pg MCHC (31.0-37.0) g/dL RDW Std Deviation (28.0-62.0) fl RDW Coeff of Mumtaz (11.0-15.0) % Plt Count (150-400) K/uL MPV (7.40-12.00) fL Neut % (Auto) (48.0-80.0) % Lymph % (Auto) (16.0-40.0) % Louisa % (Auto) (0.0-15.0) % Eos % (Auto) (0.0-7.0) % Baso % (Auto) (0.0-1.5) % Neut # (Auto) (1.4-5.7) K/uL Lymph # (Auto) (0.6-2.4) K/uL Louisa # (Auto) (0.0-0.8) K/uL Eos # (Auto) (0.0-0.7) K/uL Baso # (Auto) (0.0-0.1) K/uL Nucleated RBC % /100WBC Nucleated RBCs # K/uL Lactate (0.20-2.00) mmol/L Sodium 136 (136-148) mmol/L Potassium 4.4 (3.5-5.1) mmol/L Chloride 105 (98-107) mmol/L Carbon Dioxide 17.2 L (21.0-32.0) mmol/L BUN 71 H (7.0-18.0) mg/dL Creatinine 4.4 H (0.8-1.3) mg/dL Est Cr Clr Drug Dosing 16.66 mL/min Estimated GFR (MDRD) 13.3 ml/min Glucose 101 (74-106) mg/dL Calcium 8.8 (8.5-10.1) mg/dL Magnesium 2.0 (1.8-2.4) mg/dL Total Bilirubin 0.3 (0.2-1.0) mg/dL AST 21 (15-37) IU/L ALT 49 (14-63) IU/L Alkaline Phosphatase 135 H (46-116) U/L Creatine Kinase 71 (26-308) U/L Troponin I (0.000-0.056) ng/mL Total Protein 7.6 (6.4-8.2) g/dL Albumin 2.7 L (3.4-5.0) g/dL Globulin 4.9 H (2.6-4.0) g/dL Albumin/Globulin Ratio 0.6 L (0.9-1.6) Urine Color Urine Appearance Urine pH (5.0-8.0) Ur Specific Rheems (1.001-1.035) Urine Protein (NEGATIVE) mg/dL Urine Glucose (UA) (NEGATIVE) mg/dL Urine Ketones (NEGATIVE) mg/dL Urine Occult Blood (NEGATIVE) Urine Nitrite (NEGATIVE) Urine Bilirubin (NEGATIVE) Urine Urobilinogen (<2.0) EU/dL Ur Leukocyte Esterase (NEGATIVE) Urine RBC (0-2/HPF) Urine WBC (0-5/HPF) Ur Epithelial Cells (NONE-FEW) Urine Bacteria (NEGATIVE) Ur Random Creatinine mg/dL Ur Random Sodium (40.0-220.0) mmol/L SARS-CoV-2 RNA (MIKO) (NEGATIVE) - Exam General: Alert, Oriented Lungs: Clear to Auscultation, Normal Respiratory Effort Cardiovascular: Regular Rate GI/Abdominal Exam: Normal Bowel Sounds, Soft Back Exam: No: CVA Tenderness (L), CVA Tenderness (R) Extremities: No Pedal Edema Psy/Mental Status: Alert - Patient Data Lab Results Last 24 hrs: Laboratory Results - last 24 hr 11/15/20 11/15/20 11/15/20 Range/Units 14:05 14:05 14:20 WBC 14.25 H (4.0-11.0) K/uL RBC 4.31 L (4.50-5.90) M/uL Hgb 12.2 L (13.0-17.0) g/dL Hct 35.6 L (38.0-50.0) % MCV 82.6 (80.0-98.0) fL MCH 28.3 (27.0-32.0) pg MCHC 34.3 (31.0-37.0) g/dL RDW Std Deviation 38.2 (28.0-62.0) fl RDW Coeff of Mumtaz 13 (11.0-15.0) % Plt Count 332 (150-400) K/uL MPV 9.20 (7.40-12.00) fL Neut % (Auto) 73.6 (48.0-80.0) % Lymph % (Auto) 15.9 L (16.0-40.0) % Louisa % (Auto) 8.0 (0.0-15.0) % Eos % (Auto) 2.3 (0.0-7.0) % Baso % (Auto) 0.2 (0.0-1.5) % Neut # (Auto) 10.5 H (1.4-5.7) K/uL Lymph # (Auto) 2.3 (0.6-2.4) K/uL Louisa # (Auto) 1.1 H (0.0-0.8) K/uL Eos # (Auto) 0.3 (0.0-0.7) K/uL Baso # (Auto) 0.0 (0.0-0.1) K/uL Nucleated RBC % 0.0 /100WBC Nucleated RBCs # 0 K/uL Lactate (0.20-2.00) mmol/L Sodium 133 L (136-148) mmol/L Potassium 4.0 (3.5-5.1) mmol/L Chloride 100 (98-107) mmol/L Carbon Dioxide 17.4 L (21.0-32.0) mmol/L BUN 68 H (7.0-18.0) mg/dL Creatinine 4.4 H (0.8-1.3) mg/dL Est Cr Clr Drug Dosing 16.66 mL/min Estimated GFR (MDRD) 13.3 ml/min Glucose 104 (74-106) mg/dL Calcium 9.4 (8.5-10.1) mg/dL Magnesium (1.8-2.4) mg/dL Total Bilirubin 0.7 (0.2-1.0) mg/dL AST 28 (15-37) IU/L ALT 65 H (14-63) IU/L Alkaline Phosphatase 158 H (46-116) U/L Creatine Kinase (26-308) U/L Troponin I < 0.050 (0.000-0.056) ng/mL Total Protein 8.7 H (6.4-8.2) g/dL Albumin 3.3 L (3.4-5.0) g/dL Globulin 5.4 H (2.6-4.0) g/dL Albumin/Globulin Ratio 0.6 L (0.9-1.6) Urine Color YELLOW Urine Appearance CLOUDY Urine pH 6.0 (5.0-8.0) Ur Specific Rheems 1.010 (1.001-1.035) Urine Protein TRACE H (NEGATIVE) mg/dL Urine Glucose (UA) NEGATIVE (NEGATIVE) mg/dL Urine Ketones NEGATIVE (NEGATIVE) mg/dL Urine Occult Blood SMALL H (NEGATIVE) Urine Nitrite NEGATIVE (NEGATIVE) Urine Bilirubin NEGATIVE (NEGATIVE) Urine Urobilinogen 0.2 (<2.0) EU/dL Ur Leukocyte Esterase LARGE H (NEGATIVE) Urine RBC 1-3 (0-2/HPF) Urine WBC TO NUMEROUS TO COUNT H (0-5/HPF) Ur Epithelial Cells FEW (NONE-FEW) Urine Bacteria FEW (NEGATIVE) Ur Random Creatinine mg/dL Ur Random Sodium (40.0-220.0) mmol/L SARS-CoV-2 RNA (MIKO) (NEGATIVE) 11/15/20 11/15/20 11/15/20 Range/Units 14:20 14:45 15:03 WBC (4.0-11.0) K/uL RBC (4.50-5.90) M/uL Hgb (13.0-17.0) g/dL Hct (38.0-50.0) % MCV (80.0-98.0) fL MCH (27.0-32.0) pg MCHC (31.0-37.0) g/dL RDW Std Deviation (28.0-62.0) fl RDW Coeff of Mumtaz (11.0-15.0) % Plt Count (150-400) K/uL MPV (7.40-12.00) fL Neut % (Auto) (48.0-80.0) % Lymph % (Auto) (16.0-40.0) % Louisa % (Auto) (0.0-15.0) % Eos % (Auto) (0.0-7.0) % Baso % (Auto) (0.0-1.5) % Neut # (Auto) (1.4-5.7) K/uL Lymph # (Auto) (0.6-2.4) K/uL Louisa # (Auto) (0.0-0.8) K/uL Eos # (Auto) (0.0-0.7) K/uL Baso # (Auto) (0.0-0.1) K/uL Nucleated RBC % /100WBC Nucleated RBCs # K/uL Lactate 0.6 (0.20-2.00) mmol/L Sodium (136-148) mmol/L Potassium (3.5-5.1) mmol/L Chloride (98-107) mmol/L Carbon Dioxide (21.0-32.0) mmol/L BUN (7.0-18.0) mg/dL Creatinine (0.8-1.3) mg/dL Est Cr Clr Drug Dosing mL/min Estimated GFR (MDRD) ml/min Glucose (74-106) mg/dL Calcium (8.5-10.1) mg/dL Magnesium (1.8-2.4) mg/dL Total Bilirubin (0.2-1.0) mg/dL AST (15-37) IU/L ALT (14-63) IU/L Alkaline Phosphatase (46-116) U/L Creatine Kinase (26-308) U/L Troponin I (0.000-0.056) ng/mL Total Protein (6.4-8.2) g/dL Albumin (3.4-5.0) g/dL Globulin (2.6-4.0) g/dL Albumin/Globulin Ratio (0.9-1.6) Urine Color Urine Appearance Urine pH (5.0-8.0) Ur Specific Rheems (1.001-1.035) Urine Protein (NEGATIVE) mg/dL Urine Glucose (UA) (NEGATIVE) mg/dL Urine Ketones (NEGATIVE) mg/dL Urine Occult Blood (NEGATIVE) Urine Nitrite (NEGATIVE) Urine Bilirubin (NEGATIVE) Urine Urobilinogen (<2.0) EU/dL Ur Leukocyte Esterase (NEGATIVE) Urine RBC (0-2/HPF) Urine WBC (0-5/HPF) Ur Epithelial Cells (NONE-FEW) Urine Bacteria (NEGATIVE) Ur Random Creatinine 65.2 mg/dL Ur Random Sodium 40.0 (40.0-220.0) mmol/L SARS-CoV-2 RNA (MIKO) NEGATIVE (NEGATIVE) 11/15/20 11/15/20 11/16/20 Range/Units 17:30 23:43 05:28 WBC 9.73 (4.0-11.0) K/uL RBC 3.67 L (4.50-5.90) M/uL Hgb 10.3 L (13.0-17.0) g/dL Hct 30.7 L (38.0-50.0) % MCV 83.7 (80.0-98.0) fL MCH 28.1 (27.0-32.0) pg MCHC 33.6 (31.0-37.0) g/dL RDW Std Deviation 39.2 (28.0-62.0) fl RDW Coeff of Mumtaz 13 (11.0-15.0) % Plt Count 333 (150-400) K/uL MPV 9.30 (7.40-12.00) fL Neut % (Auto) 68.4 (48.0-80.0) % Lymph % (Auto) 19.8 (16.0-40.0) % Louisa % (Auto) 8.1 (0.0-15.0) % Eos % (Auto) 3.5 (0.0-7.0) % Baso % (Auto) 0.2 (0.0-1.5) % Neut # (Auto) 6.7 H (1.4-5.7) K/uL Lymph # (Auto) 1.9 (0.6-2.4) K/uL Louisa # (Auto) 0.8 (0.0-0.8) K/uL Eos # (Auto) 0.3 (0.0-0.7) K/uL Baso # (Auto) 0.0 (0.0-0.1) K/uL Nucleated RBC % 0.0 /100WBC Nucleated RBCs # 0 K/uL Lactate (0.20-2.00) mmol/L Sodium (136-148) mmol/L Potassium (3.5-5.1) mmol/L Chloride (98-107) mmol/L Carbon Dioxide (21.0-32.0) mmol/L BUN (7.0-18.0) mg/dL Creatinine (0.8-1.3) mg/dL Est Cr Clr Drug Dosing mL/min Estimated GFR (MDRD) ml/min Glucose (74-106) mg/dL Calcium (8.5-10.1) mg/dL Magnesium (1.8-2.4) mg/dL Total Bilirubin (0.2-1.0) mg/dL AST (15-37) IU/L ALT (14-63) IU/L Alkaline Phosphatase (46-116) U/L Creatine Kinase (26-308) U/L Troponin I < 0.050 < 0.050 (0.000-0.056) ng/mL Total Protein (6.4-8.2) g/dL Albumin (3.4-5.0) g/dL Globulin (2.6-4.0) g/dL Albumin/Globulin Ratio (0.9-1.6) Urine Color Urine Appearance Urine pH (5.0-8.0) Ur Specific Rheems (1.001-1.035) Urine Protein (NEGATIVE) mg/dL Urine Glucose (UA) (NEGATIVE) mg/dL Urine Ketones (NEGATIVE) mg/dL Urine Occult Blood (NEGATIVE) Urine Nitrite (NEGATIVE) Urine Bilirubin (NEGATIVE) Urine Urobilinogen (<2.0) EU/dL Ur Leukocyte Esterase (NEGATIVE) Urine RBC (0-2/HPF) Urine WBC (0-5/HPF) Ur Epithelial Cells (NONE-FEW) Urine Bacteria (NEGATIVE) Ur Random Creatinine mg/dL Ur Random Sodium (40.0-220.0) mmol/L SARS-CoV-2 RNA (MIKO) (NEGATIVE) 11/16/20 11/16/20 Range/Units 05:28 05:28 WBC (4.0-11.0) K/uL RBC (4.50-5.90) M/uL Hgb (13.0-17.0) g/dL Hct (38.0-50.0) % MCV (80.0-98.0) fL MCH (27.0-32.0) pg MCHC (31.0-37.0) g/dL RDW Std Deviation (28.0-62.0) fl RDW Coeff of Mumtaz (11.0-15.0) % Plt Count (150-400) K/uL MPV (7.40-12.00) fL Neut % (Auto) (48.0-80.0) % Lymph % (Auto) (16.0-40.0) % Louisa % (Auto) (0.0-15.0) % Eos % (Auto) (0.0-7.0) % Baso % (Auto) (0.0-1.5) % Neut # (Auto) (1.4-5.7) K/uL Lymph # (Auto) (0.6-2.4) K/uL Louisa # (Auto) (0.0-0.8) K/uL Eos # (Auto) (0.0-0.7) K/uL Baso # (Auto) (0.0-0.1) K/uL Nucleated RBC % /100WBC Nucleated RBCs # K/uL Lactate (0.20-2.00) mmol/L Sodium 136 (136-148) mmol/L Potassium 4.4 (3.5-5.1) mmol/L Chloride 105 (98-107) mmol/L Carbon Dioxide 17.2 L (21.0-32.0) mmol/L BUN 71 H (7.0-18.0) mg/dL Creatinine 4.4 H (0.8-1.3) mg/dL Est Cr Clr Drug Dosing 16.66 mL/min Estimated GFR (MDRD) 13.3 ml/min Glucose 101 (74-106) mg/dL Calcium 8.8 (8.5-10.1) mg/dL Magnesium 2.0 (1.8-2.4) mg/dL Total Bilirubin 0.3 (0.2-1.0) mg/dL AST 21 (15-37) IU/L ALT 49 (14-63) IU/L Alkaline Phosphatase 135 H (46-116) U/L Creatine Kinase 71 (26-308) U/L Troponin I (0.000-0.056) ng/mL Total Protein 7.6 (6.4-8.2) g/dL Albumin 2.7 L (3.4-5.0) g/dL Globulin 4.9 H (2.6-4.0) g/dL Albumin/Globulin Ratio 0.6 L (0.9-1.6) Urine Color Urine Appearance Urine pH (5.0-8.0) Ur Specific Rheems (1.001-1.035) Urine Protein (NEGATIVE) mg/dL Urine Glucose (UA) (NEGATIVE) mg/dL Urine Ketones (NEGATIVE) mg/dL Urine Occult Blood (NEGATIVE) Urine Nitrite (NEGATIVE) Urine Bilirubin (NEGATIVE) Urine Urobilinogen (<2.0) EU/dL Ur Leukocyte Esterase (NEGATIVE) Urine RBC (0-2/HPF) Urine WBC (0-5/HPF) Ur Epithelial Cells (NONE-FEW) Urine Bacteria (NEGATIVE) Ur Random Creatinine mg/dL Ur Random Sodium (40.0-220.0) mmol/L SARS-CoV-2 RNA (MIKO) (NEGATIVE) Result Diagrams: 11/16/20 05:28 11/16/20 05:28 Sepsis Event Note - Evaluation Sepsis Screening Result: No Definite Risk - Focused Exam Vital Signs: Vital Signs Temp Pulse Pulse Resp BP BP Pulse Ox 11/16/20 09:55 97.5 F 78 16 112/78 95 11/16/20 09:04 78 112/53 L 11/16/20 06:58 97.5 F 76 15 102/60 95 11/16/20 05:00 97.8 F 78 16 110/69 96 11/16/20 01:48 97.7 F 72 16 120/64 95 - Problem List & Annotations (1) Cystitis SNOMED Code(s): 08460866 Code(s): N30.90 - CYSTITIS, UNSPECIFIED WITHOUT HEMATURIA Status: Acute Current Visit: Yes (2) Hypertension SNOMED Code(s): 78891637 Code(s): I10 - ESSENTIAL (PRIMARY) HYPERTENSION Status: Acute Current Visit: Yes (3) COPD (chronic obstructive pulmonary disease) SNOMED Code(s): 29478570 Code(s): J44.9 - CHRONIC OBSTRUCTIVE PULMONARY DISEASE, UNSPECIFIED Status: Acute Current Visit: No (4) Acute kidney injury SNOMED Code(s): 23492573, 70888226 Code(s): N17.9 - ACUTE KIDNEY FAILURE, UNSPECIFIED Status: Acute Current Visit: Yes (5) Chest pain, rule out acute myocardial infarction SNOMED Code(s): 72654881 Code(s): R07.9 - CHEST PAIN, UNSPECIFIED Status: Acute Current Visit: Yes - Problem List Review Problem List Initiated/Reviewed/Updated: Yes - My Orders Last 24 Hours: My Active Orders 11/15/20 14:20 CULTURE URINE [RM] Stat 11/15/20 17:07 Intake and Output Strict [RC] Q12H 11/15/20 17:15 Sodium Chloride 0.9% [Normal Saline] 1,000 ml IV ASDIRECTED 11/15/20 17:45 Heparin Sodium 5,000 units SUBCUT Q8H 11/15/20 17:48 Oxygen Therapy [RC] PRN VTE/DVT Education [RC] PER UNIT ROUTINE Vital Signs [RC] Q4H Acetaminophen [TylenoL] 650 mg PO Q4H PRN 11/15/20 17:52 Cardiac Monitoring [RC] . DIRECTED Telemetry Monitoring [Cardiac Monitoring] [RC] . DIRECTED 11/15/20 19:14 Bladder Scan [RC] Q6HR 11/15/20 19:24 Code Status [Resuscitation Status] Routine 11/15/20 19:28 RT Post Treatment Assessment [RC] Click to Edit RT Pre-Treatment Assessment [RC] Click to Edit 11/15/20 23:30 Tamsulosin [Flomax] 0.4 mg PO BEDTIME 11/16/20 07:30 Pantoprazole [ProTONIX] 40 mg PO ACBREAKFAST 11/16/20 09:00 Metoprolol Tartrate [Lopressor] 25 mg PO DAILY Patient's Own Medication [Ptom] 2 each INH DAILY Tiotropium [Spiriva HandiHaler] 18 mcg INH DAILY 11/16/20 Lunch Renal Non-Dialysis Diet [DIET] 11/16/20 14:00 cefTRIAXone [Rocephin] 1 gm Sodium Chloride 0.9% [Normal Saline] 50 ml IV Q24H - Plan Plan:: CystitisRocephin 1 g daily AKIcreatinine 4.4, will continue fluids at a rate of 150 mL/h normal saline. Avoid all nephrotoxic agents, Strict I&O, Bladder scan Q6H. Will attempt to review patients previous records from most recent hospitalization. 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 CPK ordered. 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
[2020-11-16] MEDS ORDERED: cefTRIAXone 1 GM in Sodium Chloride 0.9% 50 ML IV SCH ×2 (14:00→16:00)
[2020-11-16] MEDS: cefTRIAXone 1 GM in Premix Bag 1 BAG IV SCH (14:18)
[2020-11-16] MEDS: Tamsulosin 0.4 MG Cap.ER PO SCH (21:35)
[2020-11-17] MEDS: Heparin Sodium 5,000 Units/ML Vial SUBCUT SCH ×3 (02:40→18:07)
[2020-11-17] MEDS: Sodium Chloride 0.9% 1,000 ML IV SCH ×3 (04:18→18:41)
[2020-11-17 06:29] LABS: CARBON DIOXIDE,CO2 18.6 mmol/L (21.0-32.0); POTASSIUM,K 4.4 mmol/L (3.5-5.1)
[2020-11-17] MEDS: Pantoprazole 40 MG Tab.CR PO SCH (06:38)
[2020-11-17] MEDS ORDERED: Polyethylene Glycol 3350 Powder 17 GM Packet PO PRN (08:37)
[2020-11-17] MEDS: Metoprolol Tartrate 25 MG Tab PO SCH (09:32)
[2020-11-17] MEDS: Tiotropium Inhaler 18 MCG Inhalation Powder Cap Kit of 5 INH SCH (09:39)
--- NOTE | 2020-11-17 10:22 | PCM.PN ---
- General Info Date of Service: 11/17/20 Subjective Update: Patient denies any complaints overnight, states he feels fine today except for some mild upper abdominal pain which he attributes to gas/constipation. Patient denies fever, chills, nausea, vomiting, abdominal pain, flank pain. - Review of Systems General: Denies: Fever, Chills Pulmonary: Denies: Shortness of Breath Cardiovascular: Denies: Chest Pain Gastrointestinal: Denies: Nausea, Vomiting Skin: Denies: Cyanosis Neurological: Denies: Confusion - Patient Data Vitals - Most Recent: Last Vital Signs Temp 97.6 F 11/17/20 07:46 Pulse 75 11/17/20 09:32 Resp 17 11/17/20 07:46 BP 116/56 L 11/17/20 09:32 Pulse Ox 97 11/17/20 07:46 Weight - Most Recent: 210 lb 1.6 oz I&O - Last 24 Hours: Intake & Output 11/16/20 11/17/20 11/17/20 22:59 06:59 14:59 Intake Total 2943 4619 Output Total 2825 3550 Balance 118 1069 Lab Results Last 24 Hours: Laboratory Results - last 24 hr 11/17/20 11/17/20 Range/Units 05:54 05:54 WBC 6.31 (4.0-11.0) K/uL RBC 3.57 L (4.50-5.90) M/uL Hgb 10.1 L (13.0-17.0) g/dL Hct 30.4 L (38.0-50.0) % MCV 85.2 (80.0-98.0) fL MCH 28.3 (27.0-32.0) pg MCHC 33.2 (31.0-37.0) g/dL RDW Std Deviation 40.5 (28.0-62.0) fl RDW Coeff of Mumtaz 13 (11.0-15.0) % Plt Count 316 (150-400) K/uL MPV 9.00 (7.40-12.00) fL Neut % (Auto) 58.6 (48.0-80.0) % Lymph % (Auto) 28.7 (16.0-40.0) % [place] % (Auto) 9.0 (0.0-15.0) % Eos % (Auto) 3.2 (0.0-7.0) % Baso % (Auto) 0.5 (0.0-1.5) % Neut # (Auto) 3.7 (1.4-5.7) K/uL Lymph # (Auto) 1.8 (0.6-2.4) K/uL [place] # (Auto) 0.6 (0.0-0.8) K/uL Eos # (Auto) 0.2 (0.0-0.7) K/uL Baso # (Auto) 0.0 (0.0-0.1) K/uL Nucleated RBC % 0.0 /100WBC Nucleated RBCs # 0 K/uL Sodium 142 (136-148) mmol/L Potassium 4.4 (3.5-5.1) mmol/L Chloride 112 H (98-107) mmol/L Carbon Dioxide 18.6 L (21.0-32.0) mmol/L BUN 58 H (7.0-18.0) mg/dL Creatinine 3.8 H (0.8-1.3) mg/dL Est Cr Clr Drug Dosing 19.29 mL/min Estimated GFR (MDRD) 15.7 ml/min Glucose 100 (74-106) mg/dL Calcium 8.9 (8.5-10.1) mg/dL Total Bilirubin 0.2 (0.2-1.0) mg/dL AST 16 (15-37) IU/L ALT 45 (14-63) IU/L Alkaline Phosphatase 129 H (46-116) U/L Total Protein 7.2 (6.4-8.2) g/dL Albumin 2.5 L (3.4-5.0) g/dL Globulin 4.7 H (2.6-4.0) g/dL Albumin/Globulin Ratio 0.5 L (0.9-1.6) Dean Results Last 24 Hours: Microbiology 11/15/20 14:20 Urine Culture - Final Urine, Voided No Growth - Exam General: Alert, Oriented Lungs: Clear to Auscultation Cardiovascular: Regular Rate GI/Abdominal Exam: Soft Psy/Mental Status: Alert - Patient Data Lab Results Last 24 hrs: Laboratory Results - last 24 hr 11/17/20 11/17/20 Range/Units 05:54 05:54 WBC 6.31 (4.0-11.0) K/uL RBC 3.57 L (4.50-5.90) M/uL Hgb 10.1 L (13.0-17.0) g/dL Hct 30.4 L (38.0-50.0) % MCV 85.2 (80.0-98.0) fL MCH 28.3 (27.0-32.0) pg MCHC 33.2 (31.0-37.0) g/dL RDW Std Deviation 40.5 (28.0-62.0) fl RDW Coeff of Mumtaz 13 (11.0-15.0) % Plt Count 316 (150-400) K/uL MPV 9.00 (7.40-12.00) fL Neut % (Auto) 58.6 (48.0-80.0) % Lymph % (Auto) 28.7 (16.0-40.0) % [place] % (Auto) 9.0 (0.0-15.0) % Eos % (Auto) 3.2 (0.0-7.0) % Baso % (Auto) 0.5 (0.0-1.5) % Neut # (Auto) 3.7 (1.4-5.7) K/uL Lymph # (Auto) 1.8 (0.6-2.4) K/uL [place] # (Auto) 0.6 (0.0-0.8) K/uL Eos # (Auto) 0.2 (0.0-0.7) K/uL Baso # (Auto) 0.0 (0.0-0.1) K/uL Nucleated RBC % 0.0 /100WBC Nucleated RBCs # 0 K/uL Sodium 142 (136-148) mmol/L Potassium 4.4 (3.5-5.1) mmol/L Chloride 112 H (98-107) mmol/L Carbon Dioxide 18.6 L (21.0-32.0) mmol/L BUN 58 H (7.0-18.0) mg/dL Creatinine 3.8 H (0.8-1.3) mg/dL Est Cr Clr Drug Dosing 19.29 mL/min Estimated GFR (MDRD) 15.7 ml/min Glucose 100 (74-106) mg/dL Calcium 8.9 (8.5-10.1) mg/dL Total Bilirubin 0.2 (0.2-1.0) mg/dL AST 16 (15-37) IU/L ALT 45 (14-63) IU/L Alkaline Phosphatase 129 H (46-116) U/L Total Protein 7.2 (6.4-8.2) g/dL Albumin 2.5 L (3.4-5.0) g/dL Globulin 4.7 H (2.6-4.0) g/dL Albumin/Globulin Ratio 0.5 L (0.9-1.6) Result Diagrams: 11/17/20 05:54 11/17/20 05:54 Dean Results Last 24 hrs: Microbiology 11/15/20 14:20 Urine Culture - Final Urine, Voided No Growth Sepsis Event Note - Evaluation Sepsis Screening Result: No Definite Risk - Focused Exam Vital Signs: Vital Signs Temp Pulse Pulse Resp BP BP Pulse Ox 11/17/20 09:32 75 116/56 L 11/17/20 07:46 97.6 F 68 17 112/60 97 11/17/20 04:20 97.4 F 63 16 110/55 L 98 11/17/20 00:39 97 F 67 15 121/63 98 - Problem List & Annotations (1) Cystitis SNOMED Code(s): 11473999 Code(s): N30.90 - CYSTITIS, UNSPECIFIED WITHOUT HEMATURIA Status: Acute Current Visit: Yes (2) Hypertension SNOMED Code(s): 18327816 Code(s): I10 - ESSENTIAL (PRIMARY) HYPERTENSION Status: Acute Current Visit: Yes (3) COPD (chronic obstructive pulmonary disease) SNOMED Code(s): 46642894 Code(s): J44.9 - CHRONIC OBSTRUCTIVE PULMONARY DISEASE, UNSPECIFIED Status: Acute Current Visit: No (4) Acute kidney injury SNOMED Code(s): 78334386, 20198223 Code(s): N17.9 - ACUTE KIDNEY FAILURE, UNSPECIFIED Status: Acute Current Visit: Yes (5) Chest pain, rule out acute myocardial infarction SNOMED Code(s): 99722355 Code(s): R07.9 - CHEST PAIN, UNSPECIFIED Status: Acute Current Visit: Yes - Problem List Review Problem List Initiated/Reviewed/Updated: Yes - My Orders Last 24 Hours: My Active Orders 11/16/20 Lunch Renal Non-Dialysis Diet [DIET] 11/16/20 14:15 cefTRIAXone [Rocephin in Dextrose,Iso-Osm 1 GM/50 ML] 1 gm Premix Bag 1 bag IV Q24H 11/17/20 08:37 polyethylene glycoL 3350 [MiraLAX] 17 gm PO BEDTIME PRN - Plan Plan:: Cystitiscontinue Rocephin 1 g daily AKIcreatinine decreased today to 3.8, will continue fluids at a rate of 150 mL /h normal saline. Avoid all nephrotoxic agents, Strict I&O, Bladder scan Q6H. Will attempt to contact safety intern who saw the patient at [facility] on previous admission. Patient's last creatinine upon discharge was 3.5, try to ascertain what may have happened when patient went home to increase creatinine to 4.4. 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
[2020-11-17] MEDS: MOMETASONE FUROATE 200 MCG INH SCH (13:12)
[2020-11-17] MEDS: cefTRIAXone 1 GM in Premix Bag 1 BAG IV SCH (14:06)
[2020-11-17] MEDS: Tamsulosin 0.4 MG Cap.ER PO SCH (20:12)
[2020-11-18] MEDS: Sodium Chloride 0.9% 1,000 ML IV SCH ×3 (01:30→23:12)
[2020-11-18] MEDS: Heparin Sodium 5,000 Units/ML Vial SUBCUT SCH ×3 (01:48→17:44)
[2020-11-18] MEDS: Pantoprazole 40 MG Tab.CR PO SCH (06:30)
[2020-11-18 07:05] LABS: CARBON DIOXIDE,CO2 17.7 mmol/L (21.0-32.0); POTASSIUM,K 4.2 mmol/L (3.5-5.1)
[2020-11-18] MEDS: Tiotropium Inhaler 18 MCG Inhalation Powder Cap Kit of 5 INH SCH (08:53)
[2020-11-18] MEDS: Metoprolol Tartrate 25 MG Tab PO SCH (09:32)
[2020-11-18] MEDS: MOMETASONE FUROATE 200 MCG INH SCH (09:46)
[2020-11-18] MEDS: cefTRIAXone 1 GM in Premix Bag 1 BAG IV SCH (14:27)
--- NOTE | 2020-11-18 14:50 | PCM.PN ---
- General Info Date of Service: 11/18/20 Subjective Update: Patient states that he feels fine today. Denies flank pain, lower back pain, chest pain, shortness of breath, abdominal pain, headaches, dizziness, dysuria, hematuria. Patient states that he is ready to go home today but if he needs to stay 1 more day for antibiotic therapy he will. - Review of Systems General: Denies: Fever, Chills Pulmonary: Denies: Shortness of Breath Cardiovascular: Denies: Chest Pain Gastrointestinal: Denies: Abdominal Pain, Nausea, Vomiting Neurological: Denies: Confusion Psychiatric: Denies: Confusion - Patient Data Vitals - Most Recent: Last Vital Signs Temp 96.9 F 11/18/20 14:23 Pulse 58 L 11/18/20 14:23 Resp 14 11/18/20 14:23 BP 130/63 11/18/20 14:23 Pulse Ox 99 11/18/20 14:23 Weight - Most Recent: 210 lb 1.6 oz I&O - Last 24 Hours: Intake & Output 11/17/20 11/18/20 11/18/20 22:59 06:59 14:59 Intake Total 4961 4847 Output Total 3639 3800 Balance 1322 1047 Lab Results Last 24 Hours: Laboratory Results - last 24 hr 11/18/20 11/18/20 Range/Units 06:25 06:25 WBC 6.76 (4.0-11.0) K/uL RBC 3.85 L (4.50-5.90) M/uL Hgb 10.8 L (13.0-17.0) g/dL Hct 33.1 L (38.0-50.0) % MCV 86.0 (80.0-98.0) fL MCH 28.1 (27.0-32.0) pg MCHC 32.6 (31.0-37.0) g/dL RDW Std Deviation 41.5 (28.0-62.0) fl RDW Coeff of Mumtaz 13 (11.0-15.0) % Plt Count 364 (150-400) K/uL MPV 9.20 (7.40-12.00) fL Neut % (Auto) 55.2 (48.0-80.0) % Lymph % (Auto) 32.7 (16.0-40.0) % [place] % (Auto) 8.7 (0.0-15.0) % Eos % (Auto) 3.0 (0.0-7.0) % Baso % (Auto) 0.4 (0.0-1.5) % Neut # (Auto) 3.7 (1.4-5.7) K/uL Lymph # (Auto) 2.2 (0.6-2.4) K/uL [place] # (Auto) 0.6 (0.0-0.8) K/uL Eos # (Auto) 0.2 (0.0-0.7) K/uL Baso # (Auto) 0.0 (0.0-0.1) K/uL Nucleated RBC % 0.0 /100WBC Nucleated RBCs # 0 K/uL Sodium 145 (136-148) mmol/L Potassium 4.2 (3.5-5.1) mmol/L Chloride 113 H (98-107) mmol/L Carbon Dioxide 17.7 L (21.0-32.0) mmol/L BUN 45 H (7.0-18.0) mg/dL Creatinine 3.3 H (0.8-1.3) mg/dL Est Cr Clr Drug Dosing 22.21 mL/min Estimated GFR (MDRD) 18.5 ml/min Glucose 93 (74-106) mg/dL Calcium 9.0 (8.5-10.1) mg/dL Total Bilirubin 0.2 (0.2-1.0) mg/dL AST 23 (15-37) IU/L ALT 50 (14-63) IU/L Alkaline Phosphatase 132 H (46-116) U/L Total Protein 7.5 (6.4-8.2) g/dL Albumin 2.6 L (3.4-5.0) g/dL Globulin 4.9 H (2.6-4.0) g/dL Albumin/Globulin Ratio 0.5 L (0.9-1.6) Dean Results Last 24 Hours: Microbiology 11/15/20 14:20 Urine Culture - Final Urine, Voided No Growth Med Orders - Current: Current Medications Acetaminophen (Acetaminophen 325 Mg Tab) 650 mg PO Q4H PRN PRN Reason: Pain (Mild 1-3)/fever Albuterol/Ipratropium (Albuterol/Ipratropium 3.0-0.5 Mg/3 Ml Neb Soln) 3 ml NEB Q4HRRT PRN PRN Reason: Wheezing Heparin Sodium (Porcine) (Heparin Sodium 5,000 Units/Ml Vial) 5,000 units SUBCUT Q8H [facility] Last Admin: 11/18/20 09:36 Dose: 5,000 units Documented by: Sodium Chloride (Normal Saline) 1,000 mls @ 150 mls/hr IV ASDIRECTED [facility] Last Admin: 11/18/20 07:49 Dose: 150 mls/hr Documented by: Ceftriaxone Sodium/Dextrose 1 (gm/ Premix) 50 mls @ 100 mls/hr IV Q24H [facility] Last Admin: 11/18/20 14:27 Dose: 100 mls/hr Documented by: Metoprolol Tartrate (Metoprolol Tartrate 25 Mg Tab) 25 mg PO DAILY [facility] Last Admin: 11/18/20 09:32 Dose: 25 mg Documented by: Pantoprazole Sodium (Pantoprazole 40 Mg Tab.Cr) 40 mg PO ACBREAKFAST [facility] Last Admin: 11/18/20 06:30 Dose: 40 mg Documented by: Mometasone Furoate (200mcg 13 Gm Inhaler) 2 each INH DAILY [facility] Last Admin: 11/18/20 09:46 Dose: Not Given Documented by: Polyethylene Glycol (Polyethylene Glycol 3350 Powder 17 Gm Packet) 17 gm PO BEDTIME PRN PRN Reason: Constipation Last Admin: 11/17/20 09:35 Dose: 17 gm Documented by: Sodium Chloride (Sodium Chloride 0.9% 10 Ml Syringe) 10 ml FLUSH ASDIRECTED PRN PRN Reason: Keep Vein Open Last Admin: 11/15/20 14:18 Dose: 10 ml Documented by: Sodium Chloride (Sodium Chloride 0.9% 2.5 Ml Syringe) 2.5 ml FLUSH ASDIRECTED PRN PRN Reason: Keep Vein Open Last Admin: 11/15/20 14:17 Dose: 2.5 ml Documented by: Tamsulosin HCl (Tamsulosin 0.4 Mg Cap.Er) 0.4 mg PO BEDTIME [facility] Last Admin: 11/17/20 20:12 Dose: 0.4 mg Documented by: Tiotropium [place] (Tiotropium Inhaler 18 Mcg Inhalation Powder Cap Kit Of 5) 18 mcg INH DAILY [facility] Last Admin: 11/18/20 08:53 Dose: 1 cap Documented by: Discontinued Medications Aspirin (Aspirin 81 Mg Tab.Chew) 324 mg PO ONETIME ONE Stop: 11/15/20 14:07 Last Admin: 11/15/20 14:17 Dose: 324 mg Documented by: Ceftriaxone Sodium/Dextrose (Rocephin In Dextrose,Iso-Osm 1 Gm/50 Ml) Confirm Administered Dose 50 mls @ as directed .ROUTE .STK-MED ONE Stop: 11/15/20 15:19 Last Admin: 11/15/20 15:28 Dose: Not Given Documented by: Ceftriaxone Sodium/Dextrose 1 (gm/ Premix) 50 mls @ 100 mls/hr IV ONETIME ONE Stop: 11/15/20 15:17 Last Admin: 11/15/20 16:25 Dose: 100 mls/hr Documented by: Sodium Chloride (Normal Saline) 1,000 mls @ 75 mls/hr IV STAT ONE Stop: 11/16/20 04:07 Last Infusion: 11/15/20 17:40 Dose: 150 mls/hr Documented by: Ceftriaxone Sodium 1 gm/ (Sodium Chloride) 50 mls @ 100 mls/hr IV Q24H JAMES Ceftriaxone Sodium 1 gm/ (Sodium Chloride) 50 mls @ 100 mls/hr IV Q24H [facility] Last Admin: 11/16/20 16:16 Dose: Not Given Documented by: Tamsulosin HCl (Tamsulosin 0.4 Mg Cap.Er) 0.4 mg PO BEDTIME JAMES Last Admin: 11/16/20 00:42 Dose: Not Given Documented by: - Exam General: Alert, Oriented Lungs: Clear to Auscultation, Normal Respiratory Effort Cardiovascular: Regular Rate GI/Abdominal Exam: Normal Bowel Sounds, Soft Back Exam: No: CVA Tenderness (L), CVA Tenderness (R) Extremities: No Pedal Edema Psy/Mental Status: Alert - Patient Data Lab Results Last 24 hrs: Laboratory Results - last 24 hr 11/18/20 11/18/20 Range/Units 06:25 06:25 WBC 6.76 (4.0-11.0) K/uL RBC 3.85 L (4.50-5.90) M/uL Hgb 10.8 L (13.0-17.0) g/dL Hct 33.1 L (38.0-50.0) % MCV 86.0 (80.0-98.0) fL MCH 28.1 (27.0-32.0) pg MCHC 32.6 (31.0-37.0) g/dL RDW Std Deviation 41.5 (28.0-62.0) fl RDW Coeff of Mumtaz 13 (11.0-15.0) % Plt Count 364 (150-400) K/uL MPV 9.20 (7.40-12.00) fL Neut % (Auto) 55.2 (48.0-80.0) % Lymph % (Auto) 32.7 (16.0-40.0) % [place] % (Auto) 8.7 (0.0-15.0) % Eos % (Auto) 3.0 (0.0-7.0) % Baso % (Auto) 0.4 (0.0-1.5) % Neut # (Auto) 3.7 (1.4-5.7) K/uL Lymph # (Auto) 2.2 (0.6-2.4) K/uL [place] # (Auto) 0.6 (0.0-0.8) K/uL Eos # (Auto) 0.2 (0.0-0.7) K/uL Baso # (Auto) 0.0 (0.0-0.1) K/uL Nucleated RBC % 0.0 /100WBC Nucleated RBCs # 0 K/uL Sodium 145 (136-148) mmol/L Potassium 4.2 (3.5-5.1) mmol/L Chloride 113 H (98-107) mmol/L Carbon Dioxide 17.7 L (21.0-32.0) mmol/L BUN 45 H (7.0-18.0) mg/dL Creatinine 3.3 H (0.8-1.3) mg/dL Est Cr Clr Drug Dosing 22.21 mL/min Estimated GFR (MDRD) 18.5 ml/min Glucose 93 (74-106) mg/dL Calcium 9.0 (8.5-10.1) mg/dL Total Bilirubin 0.2 (0.2-1.0) mg/dL AST 23 (15-37) IU/L ALT 50 (14-63) IU/L Alkaline Phosphatase 132 H (46-116) U/L Total Protein 7.5 (6.4-8.2) g/dL Albumin 2.6 L (3.4-5.0) g/dL Globulin 4.9 H (2.6-4.0) g/dL Albumin/Globulin Ratio 0.5 L (0.9-1.6) Result Diagrams: 11/18/20 06:25 11/18/20 06:25 Dean Results Last 24 hrs: Microbiology 11/15/20 14:20 Urine Culture - Final Urine, Voided No Growth Sepsis Event Note - Evaluation Sepsis Screening Result: No Definite Risk - Focused Exam Vital Signs: Vital Signs Temp Pulse Pulse Resp BP BP Pulse Ox 11/18/20 14:23 96.9 F 58 L 14 130/63 99 11/18/20 09:32 62 112/68 11/18/20 08:05 97.2 F 62 16 135/68 98 11/18/20 05:09 97.4 F 63 15 129/66 97 - Problem List & Annotations (1) Cystitis SNOMED Code(s): 00485754 Code(s): N30.90 - CYSTITIS, UNSPECIFIED WITHOUT HEMATURIA Status: Acute Current Visit: Yes (2) Hypertension SNOMED Code(s): 28999271 Code(s): I10 - ESSENTIAL (PRIMARY) HYPERTENSION Status: Acute Current Visit: Yes (3) COPD (chronic obstructive pulmonary disease) SNOMED Code(s): 80762289 Code(s): J44.9 - CHRONIC OBSTRUCTIVE PULMONARY DISEASE, UNSPECIFIED Status: Acute Current Visit: No (4) Acute kidney injury SNOMED Code(s): 32849124, 17492016 Code(s): N17.9 - ACUTE KIDNEY FAILURE, UNSPECIFIED Status: Acute Current Visit: Yes (5) Chest pain, rule out acute myocardial infarction SNOMED Code(s): 62136241 Code(s): R07.9 - CHEST PAIN, UNSPECIFIED Status: Acute Current Visit: Yes - Problem List Review Problem List Initiated/Reviewed/Updated: Yes - Plan Plan:: Cystitiscontinue Rocephin 1 g daily, today's day 4 on Rocephin (1X ED 3X MED/SURG) AKIcreatinine decreased today to 3.3, will continue fluids at a rate of 150 mL/h normal saline. Avoid all nephrotoxic agents, Strict I&O, Bladder scan Q6H. I was able to speak to the rent control office manager who saw the patient at [facility] on previous admission of 11-09-20. Nephrology states that patient was admitted with a creatinine of 4.4 (11-09-20) and discharged with a creatinine of 3.5 (11-11-20). Physicians there are not sure why patient's creatinine was elevated to 4.4 except that he may have been taking medications that were damaging to the kidneys, patient was taking allopurinol, losartan, hydrochlorothiazide. Patient was set to be followed up as an outpatient with nephrology due to elevated creatinine on discharge, 3.5. Patient was also noted to have a small non obstructing 1cm X.7 cm kidney stone in the left renal interpolar region on US which was performed at [facility]. GERD-protonix 40mg PO daily Renal diet, heparin 5000 units SC Q8H for DVT prophylaxis, security monitor, vitals Q4H. Patient set to discharged tomorrow pending no significant increase of creatinine. Recommend patient be discharged home on antibiotics. Patient has previously failed ciprofloxacin and Ceftin antibiotics, recommend Keflex 500mg BID for additional 9-10 days based on discharge time tomorrow for a 14 day course due to cystitis and prior failed antibiotic regiments for UTI. No nephrotoxic agents upon discharge. Patient may continue Metoprolol 25mg daily as his BP during admission have been in the 120-130's systolic. Continue Flomax for BPH.
[2020-11-18] MEDS: Tamsulosin 0.4 MG Cap.ER PO SCH (20:11)
[2020-11-19] MEDS: Heparin Sodium 5,000 Units/ML Vial SUBCUT SCH ×2 (03:14→10:02)
[2020-11-19] MEDS: Pantoprazole 40 MG Tab.CR PO SCH (06:38)
[2020-11-19] MEDS: Sodium Chloride 0.9% 1,000 ML IV SCH (06:38)
[2020-11-19 06:56] LABS: CARBON DIOXIDE,CO2 18.5 mmol/L (21.0-32.0); POTASSIUM,K 4.4 mmol/L (3.5-5.1)
[2020-11-19] MEDS: Metoprolol Tartrate 25 MG Tab PO SCH (08:32)
[2020-11-19] MEDS: Tiotropium Inhaler 18 MCG Inhalation Powder Cap Kit of 5 INH SCH (08:34)
[2020-11-19] MEDS ORDERED: Magnesium Oxide 400 MG Tab PO ONE (10:00)
[2020-11-19] MEDS: MOMETASONE FUROATE 200 MCG INH SCH (10:14)
--- NOTE | 2020-11-19 11:53 | PCM.DCSUM1 ---
Discharge Summary - Hospital Course Free Text/Narrative:: 70-year-old male admitted for cystitis, STEVE, ACS rule out. Patient presented to the emergency department where [facility] due to abdominal discomfort, back pain , chest pain, unresolved UTI. Patient states he was previously seen in [facility] this past for similar symptoms, was diagnosed with a urinary tract infection and acute kidney injury, states he was treated with antibiotics and IV fluids, discharged home on ciprofloxacin. Patient states at discharge from [facility] all of his lab work including kidney functions were normal (will request patient's previous records to confirm). Patient also believes that his poor kidney function could be related to his previous hypertension medication, losartan, which was discontinued prior to admission. Patient states since discharge symptoms have not improved. On admission patient states right lower back pain with right flank pain. Denies shortness of breath or chest pain. Denies headache, dizziness, nausea, vomiting, constipation, dysuria, hematuria. Patient states past medical history of hypertension, with no other cardiac disease. Patient also states history of COPD, hypertension, GERD, indigestion. Patient is not currently a smoker. Patient denies history of diabetes. Laboratory work includes first troponin negative EKG-normal sinus rhythm with regular rate 86, white blood cell count of 14.2, sodium 133, potassium 4.0, BUN 68, creatinine 4.4, UA positive for white blood cell and positive leukocyte esterase, negative nitrite. Negative chest x-ray, CT abdomen pelvis impression of bladder wall thickening possible cystitis and signs of diverticulosis without diverticulitis. Patient will be started on Rocephin 1 g daily and IV fluids. upon contacting commercial relief driver who saw the patient at [facility] on previous admission of 11-09-20. Nephrology states that patient was admitted with a creatinine of 4.4 (11-09-20) and discharged with a creatinine of 3.5 (11-11-20). STEVE was attribyed tohis taking several nephrotoxic meds which were discontinued upon dc, Patient was set to be followed up as an outpatient with nephrology due to elevated creatinine on discharge, 3.5. Patient was also noted to have a small non obstructing 1cm X.7 cm kidney stone in the left renal interpolar region on US which was performed at [place]. During his hospitalization here, Patient was started on IV antibiotics( Roceph in) for UTI as well as aggressive IV hydration, over next few days patients Creatinine slowly improved to 2.8 , patient was discharged home on Keflex and recommended to fu with his PCP and repeat BMP in a week, was asked to avoid nephrotoxic meds, He was also recommenced to see a aircraft structural repair mechanic in near future for a possible stress test. - Discharge Data Discharge Date: 11/19/20 Discharge Disposition: Home, Self-Care 01 Condition: Stable - Referral to Home Health Primary Care Physician: Alonso Aiken NP - Discharge Plan Prescriptions/Med Rec: cephALEXin [Keflex] 500 mg PO BID #20 cap Home Medications: Home Meds Diclofenac Sodium [Voltaren 1% Gel] 4 gm TOP QID PRN MDD 32 grams 11/15/20 [History] Metoprolol Tartrate 12.5 mg PO BID 11/15/20 [History] Mometasone Furoate 200mcg [Asmanex HFA 200mcg] 2 puff INH DAILY 11/15/20 [History] Tamsulosin HCl [Flomax] 0.4 mg PO BEDTIME 11/15/20 [History] Tiotropium [Spiriva HandiHaler] 18 mcg INH DAILY 11/15/20 [History] atorvaSTATin Calcium [Atorvastatin Calcium] 20 mg PO BEDTIME 11/15/20 [History] cephALEXin [Keflex] 500 mg PO BID #20 cap 11/19/20 [Rx] Patient Handouts: Acute Kidney Injury, Adult, Urinary Tract Infection, Adult, Cephalexin Tablets or Capsules Referrals: [facility] [Outside] Alonso Aiken NP [Primary Care Provider] - 12/04/20 10:00 am - Discharge Summary/Plan Comment DC Time >30 min.: No - Patient Data Vitals - Most Recent: Last Vital Signs Temp 36.3 C 11/19/20 07:55 Pulse 62 11/19/20 08:32 Resp 16 11/19/20 07:55 BP 157/74 H 11/19/20 08:32 Pulse Ox 98 11/19/20 07:55 Weight - Most Recent: 95.3 kg I&O - Last 24 hours: Intake & Output 11/18/20 11/19/20 11/19/20 21:59 06:59 14:59 Intake Total Output Total Balance Lab Results - Last 24 hrs: Laboratory Results - last 24 hr 11/19/20 11/19/20 Range/Units 06:20 06:20 WBC 6.15 (4.0-11.0) K/uL RBC 3.56 L (4.50-5.90) M/uL Hgb 10.0 L (13.0-17.0) g/dL Hct 30.3 L (38.0-50.0) % MCV 85.1 (80.0-98.0) fL MCH 28.1 (27.0-32.0) pg MCHC 33.0 (31.0-37.0) g/dL RDW Std Deviation 40.7 (28.0-62.0) fl RDW Coeff of Mumtaz 13 (11.0-15.0) % Plt Count 318 (150-400) K/uL MPV 8.80 (7.40-12.00) fL Neut % (Auto) 52.5 (48.0-80.0) % Lymph % (Auto) 34.5 (16.0-40.0) % [place] % (Auto) 9.4 (0.0-15.0) % Eos % (Auto) 3.1 (0.0-7.0) % Baso % (Auto) 0.5 (0.0-1.5) % Neut # (Auto) 3.2 (1.4-5.7) K/uL Lymph # (Auto) 2.1 (0.6-2.4) K/uL [place] # (Auto) 0.6 (0.0-0.8) K/uL Eos # (Auto) 0.2 (0.0-0.7) K/uL Baso # (Auto) 0.0 (0.0-0.1) K/uL Nucleated RBC % 0.0 /100WBC Nucleated RBCs # 0 K/uL Sodium 144 (136-148) mmol/L Potassium 4.4 (3.5-5.1) mmol/L Chloride 114 H (98-107) mmol/L Carbon Dioxide 18.5 L (21.0-32.0) mmol/L BUN 34 H (7.0-18.0) mg/dL Creatinine 2.8 H (0.8-1.3) mg/dL Est Cr Clr Drug Dosing 26.17 mL/min Estimated GFR (MDRD) 22.4 ml/min Glucose 95 (74-106) mg/dL Calcium 8.5 (8.5-10.1) mg/dL Magnesium 1.5 L (1.8-2.4) mg/dL Total Bilirubin 0.2 (0.2-1.0) mg/dL AST 22 (15-37) IU/L ALT 45 (14-63) IU/L Alkaline Phosphatase 119 H (46-116) U/L Total Protein 6.7 (6.4-8.2) g/dL Albumin 2.4 L (3.4-5.0) g/dL Globulin 4.3 H (2.6-4.0) g/dL Albumin/Globulin Ratio 0.6 L (0.9-1.6) Med Orders - Current: Current Medications Acetaminophen (Acetaminophen 325 Mg Tab) 650 mg PO Q4H PRN PRN Reason: Pain (Mild 1-3)/fever Albuterol/Ipratropium (Albuterol/Ipratropium 3.0-0.5 Mg/3 Ml Neb Soln) 3 ml NEB Q4HRRT PRN PRN Reason: Wheezing Heparin Sodium (Porcine) (Heparin Sodium 5,000 Units/Ml Vial) 5,000 units SUBCUT Q8H [facility] Last Admin: 11/19/20 10:02 Dose: 5,000 units Documented by: Sodium Chloride (Normal Saline) 1,000 mls @ 150 mls/hr IV ASDIRECTED [facility] Last Admin: 11/19/20 06:38 Dose: 150 mls/hr Documented by: Ceftriaxone Sodium/Dextrose 1 (gm/ Premix) 50 mls @ 100 mls/hr IV Q24H [facility] Last Admin: 11/18/20 14:27 Dose: 100 mls/hr Documented by: Metoprolol Tartrate (Metoprolol Tartrate 25 Mg Tab) 25 mg PO DAILY [facility] Last Admin: 11/19/20 08:32 Dose: 25 mg Documented by: Pantoprazole Sodium (Pantoprazole 40 Mg Tab.Cr) 40 mg PO ACBREAKFAST [facility] Last Admin: 11/19/20 06:38 Dose: 40 mg Documented by: Mometasone Furoate (200mcg 13 Gm Inhaler) 2 each INH DAILY [facility] Last Admin: 11/19/20 10:14 Dose: 2 each Documented by: Polyethylene Glycol (Polyethylene Glycol 3350 Powder 17 Gm Packet) 17 gm PO BEDTIME PRN PRN Reason: Constipation Last Admin: 11/17/20 09:35 Dose: 17 gm Documented by: Sodium Chloride (Sodium Chloride 0.9% 10 Ml Syringe) 10 ml FLUSH ASDIRECTED PRN PRN Reason: Keep Vein Open Last Admin: 11/15/20 14:18 Dose: 10 ml Documented by: Sodium Chloride (Sodium Chloride 0.9% 2.5 Ml Syringe) 2.5 ml FLUSH ASDIRECTED PRN PRN Reason: Keep Vein Open Last Admin: 11/15/20 14:17 Dose: 2.5 ml Documented by: Tamsulosin HCl (Tamsulosin 0.4 Mg Cap.Er) 0.4 mg PO BEDTIME [facility] Last Admin: 11/18/20 20:11 Dose: 0.4 mg Documented by: Tiotropium [place] (Tiotropium Inhaler 18 Mcg Inhalation Powder Cap Kit Of 5) 18 mcg INH DAILY [facility] Last Admin: 11/19/20 08:34 Dose: 1 cap Documented by: Discontinued Medications Aspirin (Aspirin 81 Mg Tab.Chew) 324 mg PO ONETIME ONE Stop: 11/15/20 14:07 Last Admin: 11/15/20 14:17 Dose: 324 mg Documented by: Ceftriaxone Sodium/Dextrose (Rocephin In Dextrose,Iso-Osm 1 Gm/50 Ml) Confirm Administered Dose 50 mls @ as directed .ROUTE .STK-MED ONE Stop: 11/15/20 15:19 Last Admin: 11/15/20 15:28 Dose: Not Given Documented by: Ceftriaxone Sodium/Dextrose 1 (gm/ Premix) 50 mls @ 100 mls/hr IV ONETIME ONE Stop: 11/15/20 15:17 Last Admin: 11/15/20 16:25 Dose: 100 mls/hr Documented by: Sodium Chloride (Normal Saline) 1,000 mls @ 75 mls/hr IV STAT ONE Stop: 11/16/20 04:07 Last Infusion: 11/15/20 17:40 Dose: 150 mls/hr Documented by: Ceftriaxone Sodium 1 gm/ (Sodium Chloride) 50 mls @ 100 mls/hr IV Q24H JAMES Ceftriaxone Sodium 1 gm/ (Sodium Chloride) 50 mls @ 100 mls/hr IV Q24H JAMES Last Admin: 11/16/20 16:16 Dose: Not Given Documented by: Magnesium Oxide (Magnesium Oxide 400 Mg Tab) 800 mg PO ONETIME ONE Stop: 11/19/20 10:01 Last Admin: 11/19/20 10:18 Dose: 800 mg Documented by: Tamsulosin HCl (Tamsulosin 0.4 Mg Cap.Er) 0.4 mg PO BEDTIME [facility] Last Admin: 11/16/20 00:42 Dose: Not Given Documented by:
== END 2020-11-19 13:00 | disposition home or self-care (01) | DRG 690 ==
LOC: MW.ED 13:48 → MW.MS 16:37 → OBSVTOIN 16:58 → MW.MS 16:59
PROVIDERS: ADMIT Internal Medicine; ATTEND Internal Medicine
DX: N30.90 Cystitis, unspecified without hematuria (principal); N39.0 Urinary tract infection, site not specified; N17.9 Acute kidney failure, unspecified; J44.9 Chronic obstructive pulmonary disease, unspecified; I10 Essential (primary) hypertension; K21.9 Gastro-esophageal reflux disease without esophagitis; K30 Functional dyspepsia; Z79.899 Other long term (current) drug therapy; E78.00 Pure hypercholesterolemia, unspecified; N40.0 Benign prostatic hyperplasia without lower urinary tract symptoms; R07.9 Chest pain, unspecified; Z20.822 Contact with and (suspected) exposure to COVID-19
CPT/HCPCS: 36415; 71045; 74176; 80053; 81001; 82570; 83605; 84300; 84484; 85025; 87086; 87635; 93005; 96365; 99285; A9270; J0696; J7030; 51798; 82550; 83735; 93010; 99221; 99232; 99238; 99284; J1644; U0002